=== PATIENT | male | born 1940 | race Caucasian/White ===

== ENCOUNTER 2018-10-14 06:53 | Day surgery (SDC) | payer MEDICARE ==
[~2018-10-14 06:53] MED LIST: Acetaminophen TAB* 325 MG PO PRN; Buffered Lidocaine 1% SYRIN* 1 ML/SYRINGE INTRADERM ONE
[2018-10-14] MEDS ORDERED: Midazolam* 1 MG/ML 2 ML VIAL (2 MG) ONE (08:19)
[2018-10-14 09:17] VITALS: BP 120/78
[2018-10-14] MEDS ORDERED: Lidocaine 1%* 5 ML VIAL ONE (09:36)
[2018-10-14] MEDS ORDERED: Phenylephrine OPHTH SOL 2.5%* 2 ML ONE (09:36)
[2018-10-14] MEDS ORDERED: acetaZOLAMIDE TAB* 250 MG ONE (09:36)
[2018-10-14] MEDS ORDERED: Neomycin/Polymy/Dex OPTH.SUSP* MAXITROL 0.1% 5 ML ONE (09:36)
[2018-10-14] MEDS ORDERED: Proparacaine 0.5% OPHTH.SOL* 15 ML BTL ONE (09:36)
[2018-10-14] MEDS ORDERED: Povidone Iodine 5% OPTH* 30 ML BTL ONE (09:36)
[2018-10-14] MEDS ORDERED: Ketorolac 0.5% OPHTH (NF) 0.5 % 5 ML BTL ONE (09:36)
[2018-10-14] MEDS ORDERED: Lidocaine 2% EPI 1:200000 MPF*10-20 ML VIAL ONE (09:36)
[2018-10-14] MEDS ORDERED: Cyclopentolate 1% OPTH.SOL* 2 ML BTL ONE (09:36)
--- NOTE | 2018-10-14 10:33 | OP ---
DATE OF OPERATION: 10/14/2018. DATE OF : 1940. SURGEON: Chris Connolly M.D. PREOPERATIVE DIAGNOSIS: Cataract left eye. POSTOPERATIVE DIAGNOSIS: Cataract left eye. OPERATIVE PROCEDURE: Extracapsular cataract extraction with intraocular lens implant left eye. PROCEDURE: The patient was brought to the operating room after being given 1/2% Alcaine with epineph rine drops in the preoperative area. The eye was prepped and draped in the usual sterile fashion. S terile drape and eyelid speculum were placed. Again, topical 1/2% Alcaine with epinephrine was given . A paracentesis incision was made at the 3 o'clock position with the No.75 blade. Clear cornea inc ision 2.2 x 2.2-mm was created at the 6 o'clock position starting at the anterior limbus using the 2. 2-mm keratome. The anterior chamber was irrigated with 0.4 mL of 1% non-preservative intracameral li docaine and filled with DisCoVisc. A capsulorrhexis was completed using the cystotome and the Utrata forceps. Hydrodissection was performed with balanced salt solution. The lens nucleus was removed wi th the Phacoemulsification handpiece without incident. Cortex was removed with the irrigation-aspira tion handpiece. The capsular bag was re-inflated using DisCoVisc and an [id number] 23.5 implant was inse rted with the shooter, oriented to the 177 degree meridian. All measurements were confirmed with ORA . The irrigation-aspiration handpiece was used to remove all residual DisCoVisc. The eye was refill ed with balanced salt solution and the wound checked and found to be watertight. Topical Maxitrol dr ops were given. [id number]/[facility] #: [id number]
== END 2018-10-14 09:27 | disposition home or self-care (01) ==
LOC: OREAST 06:53
PROVIDERS: ATTEND Specialist
DX: H25.12 Age-related nuclear cataract, left eye (principal); Z72.0 Tobacco use; I10 Essential (primary) hypertension
CPT/HCPCS: A9270-GY; J2250; V2787

== ENCOUNTER → 2018-10-21 07:03 | Day surgery (SDC) | payer MEDICARE ==
[~2018-10-21 07:03] MED LIST changes: +Cyclopentolate 1% OPTH.SOL* 2 ML BTL ONE; +Ketorolac 0.5% OPHTH (NF) 0.5 % 5 ML BTL ONE; +Lidocaine 1%* 5 ML VIAL ONE; +Lidocaine 2% EPI 1:200000 MPF*10-20 ML VIAL ONE; +Midazolam* 1 MG/ML 2 ML VIAL (2 MG) ONE; +Neomycin/Polymy/Dex OPTH.SUSP* MAXITROL 0.1% 5 ML ONE; +Phenylephrine OPHTH SOL 2.5%* 2 ML ONE; +Povidone Iodine 5% OPTH* 30 ML BTL ONE; +Proparacaine 0.5% OPHTH.SOL* 15 ML BTL ONE; +acetaZOLAMIDE TAB* 250 MG ONE
[2018-10-21 10:29] VITALS: BP 101/64
--- NOTE | 2018-10-21 12:39 | OP ---
OPERATIVE NOTE: DATE OF OPERATION: 10/21/18 DATE OF : [birth year] SURGEON: Chris Connolly MD PREOPERATIVE DIAGNOSIS: Cataract, right eye. POSTOPERATIVE DIAGNOSIS: Cataract, right eye. OPERATIVE PROCEDURE: Extracapsular cataract extraction with intraocular lens implant, right eye. PROCEDURE: The patient was brought to the operating room after being given 1/2% Alcaine with epineph rine drops in the preoperative area. The eye was prepped and draped in the usual sterile fashion. S terile drape and eyelid speculum were placed. Again, topical 1/2% Alcaine with epinephrine was given . A paracentesis incision was made at the 9 o'clock position with the No.75 blade. Clear cornea inc ision 2.2 x 2.2-mm was created at the 12 o'clock position starting at the anterior limbus using the 2 .2-mm keratome. The anterior chamber was irrigated with 0.4 mL of 1% non-preservative intracameral l idocaine and filled with DisCoVisc. A capsulorrhexis was completed using the cystotome and the Utrat a forceps. Hydrodissection was performed with balanced salt solution. The lens nucleus was removed w ith the Phacoemulsification handpiece without incident. Cortex was removed with the irrigation-aspir ation handpiece. The capsular bag was re-inflated using DisCoVisc and an [id number] 24 implant was inser blake with the shooter, oriented to the 156-degree meridian. The irrigation-aspiration handpiece was u sed to remove all residual DisCoVisc. The eye was refilled with balanced salt solution and the wound checked and found to be watertight. Topical Maxitrol drops were given. All measurements confirmed with ORA. [id number]/[facility] #: [id number]
== END | disposition home or self-care (01) ==
LOC: OREAST 07:03
PROVIDERS: ATTEND Specialist
DX: H25.11 Age-related nuclear cataract, right eye (principal); I10 Essential (primary) hypertension; F17.210 Nicotine dependence, cigarettes, uncomplicated
CPT/HCPCS: A9270-GY; J2250; V2787

== ENCOUNTER 2018-12-21 15:13 | Inpatient (IN) | payer MEDICARE ==
[2018-12-21 17:28] LABS: Hematocrit 42 % (42-52); Hemoglobin 14.5 g/dL (14.0-18.0); Mean Corpuscular HGB Conc 35 g/dL (31-36); Mean Corpuscular Hemoglobin 34 pg (27-31); Mean Corpuscular Volume 98 fL (80-94); Mean Platelet Volume 7.3 fL (7.4-10.4); Platelet Count 635 10^3/uL (150-450); Red Blood Count 4.26 10^6 /uL (4.18-5.48); Red Cell Distribution Width 12 % (10-15)
[2018-12-21] MEDS ORDERED: NS 0.9% 1000 ML** 1,000 ML IV ONE ×2 (17:42→17:49)
[2018-12-21 17:48] LABS: ALT 21 U/L (7-52); AST 24 U/L (13-39); Albumin 3.5 g/dL (3.2-5.2); Albumin/Globulin Ratio 0.9 (1-3); Alkaline Phosphatase 117 U/L (34-104); BUN/Creatinine Ratio 26.3 (8-20); Blood Urea Nitrogen 42 mg/dL (6-24); C Reactive Protein 342.04 mg/L (<8.01); CO2 Carbon Dioxide 29 mmol/L (22-32); Chloride 85 mmol/L (101-111); EGFR African American 51.1 (>60); EGFR Non-African American 42.2 (>60); Globulin 3.8 g/dL (2-4); Glucose 110 mg/dL (70-100); Sodium 124 mmol/L (135-145); Total Protein 7.3 g/dL (6.4-8.9)
[2018-12-21 17:49] LABS: Anion Gap 10 mmol/L (2-11); Potassium 5.1 mmol/L (3.5-5.0); Troponin I 0.05 ng/mL (<0.04)
[2018-12-21] MEDS ORDERED: Levofloxacin 750 MG IVPREMIX(* 750 MG/150 ML BAG IVPB ONE (17:49)
[2018-12-21 18:08] LABS: ABS Lymphocytes 0.6 10^3/ul (1.0-4.8); ABS Monocytes 1.4 10^3/ul (0-0.8); Creatine Kinase 66 U/L (10-223); Lymphocyte % 1.7 %
--- NOTE | 2018-12-21 18:21 | ED ---
Complex/Multi-Sys Presentation - HPI Summary HPI Summary: This patient is a 78 year old M presenting to [facility] [place] accompanied by a female wheel inspector with a chief complaint of feeling cold, shaking, and fatigue since 3 days ago. Pt states he had a heat stroke 3 days ago and has not been the same since then. Pt reports decreased PO intake, cough, and congestion. He states that since the heat stroke, his arthritis, hip pain, and sciatica worsened. He notes having a "chest infection" and says that liquid building up in his chest causes him to cough. The pt rates the pain 7/10 in severity. Symptoms aggravated by nothing. Symptoms alleviated by nothing. Pt also states he does not have air conditioning in his apartment. - History Of Current Complaint Chief Complaint: EDShortnessOfBreath Time Seen by Provider: 12/21/18 17:23 Hx Obtained From: Patient Onset/Duration: Sudden Onset, Lasting Days - 3, Still Present Timing: Constant, Days - 3 Severity Currently: Severe Severity Initially: Severe Aggravating Factor(s): nothing Alleviating Factor(s): nothing Associated Signs And Symptoms: Positive: Cough, Decreased Oral Intake, Other - positive - cold, shaking, fatigue, congestion, arthritis, hip pain, and sciatica worsened, "chest infection" - Allergies/Home Medications Allergies/Adverse Reactions: Allergies Allergy/AdvReac Type Severity Reaction Status Date / Time No Known Allergies Allergy Verified 10/21/18 07:20 Home Medications: Home Medications Ascorbic Acid TAB* [Vitamin C TAB*] 500 mg PO DAILY 12/21/18 [History Confirmed 12/21/18] Aspirin EC TAB* [Ecotrin EC Low Dose 81 MG*] 81 mg PO DAILY 12/21/18 [History Confirmed 12/21/18] Multivitamins/Minerals TAB* [Theragran/minerals TAB*] 1 tab PO DAILY 12/21/18 [ History Confirmed 12/21/18] PMH/Surg Hx/FS Hx/Imm Hx Previously Healthy: No Cardiovascular History: Reports: Hx Hypertension - controlled with medication Denies: Other Cardiovascular Problems/Disorders Respiratory History: Denies: Other Respiratory Problems/Disorders GI History: Denies: Other GI Disorders History: Denies: Other Problems/Disorders Musculoskeletal History: Reports: Hx Arthritis - lower back, bilateral hips- left hip greater than right, Other Musculoskeletal History - Bilateral sciatic and groin pain,left greater than right,Hx inguinal hernia Sensory History: Reports: Hx Cataracts - Bilateral, Hx Contacts or Glasses - sometimes for reading Denies: Hx Hearing Aid Opthamlomology History: Reports: Hx Cataracts - Bilateral, Hx Contacts or Glasses - sometimes for reading Neurological History: Denies: Other Neuro Impairments/Disorders - Surgical History Surgical History: Yes Surgery Procedure, Year, and Place: Teeth Extraction, office. 1977 Facial bone repair below left eye, office. Left Inguinal Hernia Repair 2012 [facility] – [place]. Colonoscopy x2 Hx Anesthesia Reactions: No Infectious Disease History: No Infectious Disease History: Denies: Traveled Outside the [place] in Last 30 Days - Family History Known Family History: Positive: Cardiac Disease - mother of [place], brother of stroke - Social History Alcohol Use: Daily Alcohol Amount: BEER- 4-5 beers a day Hx Substance Use: No Substance Use Type: Reports: None Hx Tobacco Use: Yes Smoking Status (MU): Heavy Every Day Tobacco Smoker Type: Cigarettes Amount Used/How Often: 1 PPD for 50+ years Have You Smoked in the Last Year: Yes Review of Systems Constitutional: Other - positive - decreased PO intake, shaking Positive: Chills - feels cold, Fatigue ENT: Other - positive - congestion Respiratory: Other - positive - "chest infection" and says that liquid building up in his chest causes him to cough. Positive: Cough Musculoskeletal: Other - positive - since the heat stroke, his arthritis, hip pain, and sciatica worsened All Other Systems Reviewed And Are Negative: Yes Physical Exam - Summary Physical Exam Summary: Appearance: The patient is well-nourished in no acute distress and in no acute pain. Skin: The skin is warm and dry and skin color reflects adequate perfusion. HEENT: The head is normocephalic and atraumatic. The pupils are equal and reactive. The conjunctivae are clear and without drainage. Nares are patent and without drainage. Mouth reveals moist mucous membranes and the throat is without erythema and exudate. The external ears are intact. The ear canals are patent and without drainage. The tympanic membranes are intact. Neck: The neck is supple with full range of motion and non-tender. There are no carotid bruits. There is no neck vein distension. Respiratory: Chest is non-tender. Lungs are clear to auscultation and breath sounds are symmetrical and equal. Cardiovascular: Heart is tachycardic. There is no murmur or rub auscultated. There is no peripheral edema and pulses are symmetrical and equal. Abdomen: The abdomen is soft and non-tender. There are normal bowel sounds heard in all four quadrants and there is no organomegaly palpated. Musculoskeletal: There is no back tenderness noted. Extremities are non-tender with full range of motion. There is good capillary refill. There is no peripheral edema or calf tenderness elicited. Neurological: Patient is alert and oriented to person, place and time. The patient has symmetrical motor strength in all four extremities. Cranial nerves are grossly intact. Deep tendon reflexes are symmetrical and equal in all four extremities. Psychiatric: The patient has an appropriate affect and does not exhibit any anxiety or depression. Triage Information Reviewed: Yes Vital Signs On Initial Exam: Initial Vitals Temp Pulse Resp BP Pulse Ox 98.7 F 106 18 144/93 94 12/21/18 15:19 12/21/18 15:19 12/21/18 15:19 12/21/18 15:19 12/21/18 15:19 Vital Signs Reviewed: Yes Diagnostics - Vital Signs Vital Signs Temp Pulse Resp BP Pulse Ox 12/21/18 17:29 15 137/92 12/21/18 17:05 97.9 F 98 20 107/78 92 12/21/18 15:19 98.7 F 106 18 144/93 94 - Laboratory Lab Results: Lab Results 12/21/18 12/21/18 12/21/18 Range/Units 17:09 17:09 17:09 WBC 34.0 H (3.5-10.8) 10^3/uL RBC 4.26 (4.18-5.48) 10^6 /uL Hgb 14.5 (14.0-18.0) g/dL Hct 42 (42-52) % MCV 98 H (80-94) fL MCH 34 H (27-31) pg MCHC 35 (31-36) g/dL RDW 12 (10-15) % Plt Count 635 H (150-450) 10^3/uL MPV 7.3 L (7.4-10.4) fL Neut % (Auto) 94.1 % Lymph % (Auto) 1.7 % Cache % (Auto) 4.2 % Eos % (Auto) 0.0 % Baso % (Auto) 0.0 % Absolute Neuts (auto) 32.0 H (1.5-7.7) 10^3/ul Absolute Lymphs (auto) 0.6 L (1.0-4.8) 10^3/ul Absolute Monos (auto) 1.4 H (0-0.8) 10^3/ul Absolute Eos (auto) 0.0 (0-0.6) 10^3/ul Absolute Basos (auto) 0.0 (0-0.2) 10^3/ul Absolute Nucleated RBC 0.0 10^3/ul Nucleated RBC % 0.0 Sodium 124 L (135-145) mmol/L Potassium 5.1 H (3.5-5.0) mmol/L Chloride 85 L (101-111) mmol/L Carbon Dioxide 29 (22-32) mmol/L Anion Gap 10 (2-11) mmol/L BUN 42 H (6-24) mg/dL Creatinine 1.60 H (0.67-1.17) mg/dL Est GFR ( Amer) 51.1 (>60) Est GFR (Non-Af Amer) 42.2 (>60) BUN/Creatinine Ratio 26.3 H (8-20) Glucose 110 H (70-100) mg/dL Lactic Acid 2.2 H* (0.5-2.0) mmol/L Calcium 10.0 (8.6-10.3) mg/dL Total Bilirubin 0.40 (0.2-1.0) mg/dL AST 24 (13-39) U/L ALT 21 (7-52) U/L Alkaline Phosphatase 117 H (34-104) U/L Total Creatine Kinase 66 (10-223) U/L Troponin I 0.05 H* (<0.04) ng/mL C-Reactive Protein 342.04 H (<8.01) mg/L B-Natriuretic Peptide (<=100) pg/mL Total Protein 7.3 (6.4-8.9) g/dL Albumin 3.5 (3.2-5.2) g/dL Globulin 3.8 (2-4) g/dL Albumin/Globulin Ratio 0.9 L (1-3) 12/21/18 Range/Units 17:09 WBC (3.5-10.8) 10^3/uL RBC (4.18-5.48) 10^6 /uL Hgb (14.0-18.0) g/dL Hct (42-52) % MCV (80-94) fL MCH (27-31) pg MCHC (31-36) g/dL RDW (10-15) % Plt Count (150-450) 10^3/uL MPV (7.4-10.4) fL Neut % (Auto) % Lymph % (Auto) % Cache % (Auto) % Eos % (Auto) % Baso % (Auto) % Absolute Neuts (auto) (1.5-7.7) 10^3/ul Absolute Lymphs (auto) (1.0-4.8) 10^3/ul Absolute Monos (auto) (0-0.8) 10^3/ul Absolute Eos (auto) (0-0.6) 10^3/ul Absolute Basos (auto) (0-0.2) 10^3/ul Absolute Nucleated RBC 10^3/ul Nucleated RBC % Sodium (135-145) mmol/L Potassium (3.5-5.0) mmol/L Chloride (101-111) mmol/L Carbon Dioxide (22-32) mmol/L Anion Gap (2-11) mmol/L BUN (6-24) mg/dL Creatinine (0.67-1.17) mg/dL Est GFR ( Amer) (>60) Est GFR (Non-Af Amer) (>60) BUN/Creatinine Ratio (8-20) Glucose (70-100) mg/dL Lactic Acid (0.5-2.0) mmol/L Calcium (8.6-10.3) mg/dL Total Bilirubin (0.2-1.0) mg/dL AST (13-39) U/L ALT (7-52) U/L Alkaline Phosphatase (34-104) U/L Total Creatine Kinase (10-223) U/L Troponin I (<0.04) ng/mL C-Reactive Protein (<8.01) mg/L B-Natriuretic Peptide 214 H (<=100) pg/mL Total Protein (6.4-8.9) g/dL Albumin (3.2-5.2) g/dL Globulin (2-4) g/dL Albumin/Globulin Ratio (1-3) Result Diagrams: 12/21/18:10 12/21/18 21:04 Lab Statement: Any lab studies that have been ordered have been reviewed, and results considered in the medical decision making process. 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 He blamed it on the heat. His apartment is a basement apartment is not that hot but is damp. He was nontoxic in appearance but does look somewhat cachectic. He was mildly tachycardic but afebrile. He had a wet cough in the room. Labs were obtained and revealed a marked leukocytosis of 31,000. He was given IV fluids and Levaquin since he then met septic criteria. Chest x-ray showed a possible infiltrate and also possibly a mass. He had mild renal insufficiency and I was hesitant to do a follow-up CT scan until he has been rehydrated. I spoke with the hospitalist about admission - Diagnoses Provider Diagnoses: Pneumonia, Sepsis - Critical Care Time Critical Care Time: 30-74 min Discharge - Sign-Out/Discharge Documenting (check all that apply): Patient Departure - Discharge Plan Condition: Stable Disposition: ADMITTED TO [facility] Referrals: Sara Buckley PERFORMANCE TEST ARCHITECT [Primary Care Provider] - - Billing Disposition and Condition Condition: STABLE Disposition: Admitted to [facility] - Attestation Statements Document Initiated by Scribe: Yes Documenting Scribe: Sachin Head Provider For Whom Isaac is Documenting (Include Credential): Dr. Matt Campbell MD Scribe Attestation: Sachin Hansen, scribed for Dr. Matt Campbell MD on 12/21/18 at 2141. Scribe Documentation Reviewed: Yes Provider Attestation: The documentation as recorded by the Sachin reyes accurately reflects the service I personally performed and the decisions made by me, Dr. Matt Campbell MD Status of Scribe Document: Viewed
--- NOTE | 2018-12-21 20:42 | HP ---
History of Present Illness - History of Present Illness Reason for Visit: Cough History of Present Illness: Mr. Ceballos is a 78 year old male with PMHx of Hypertension, arthritis, heavy alcohol use and smoker here due to not feeling well. 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 Although he's cut down on the beer. He also says his sciatica started bothering him and he's been having cough with yellow sputum. And worsening shortness of breath so finally decided to come to ER for evaluation. He has been compliant with his diuretics during the last few days as well. Diffuse muscular pain but more so on the left chest. Episode of nausea and decreased appetite over the weekend but not any more. Decreased urination the last few days. Past Medical History Hypertension Arthritis - lower back, bilateral hips-left hip greater than right. Bilateral sciatic and groin pain,left greater than right. Surgical History Teeth Extraction Facial bone repair below left eye. Left Inguinal Hernia Repair [address] [facility] [place]. Colonoscopy x2 Bilateral Cataracts Family History Cardiac Disease - mother of [place], brother of stroke Social History Smoking heavy use [employer] at [employer] for over 50 years last use few days ago. Alcohol drinks 4-5 beer per day cut down to 1-2 last few days due to the heat stroke. Drug use tried cocaine in past. Lives alone but his niece (Amelie Bob [phone]) lives 10 minutes away. She is his HCP and he's currently full code. Allergies Allergy/AdvReac Type Severity Reaction Status Date / Time No Known Allergies Allergy Verified 10/21/18 07:20 Home Medications Medication Instructions Recorded Confirmed Type Gluc Maldonado/MSM/Magnesium/Vit C 1 cap PO QAM 10/12/18 12/21/18 History [Glucosamine Complex-MSM Cap] Lisinopril/HCTZ 21/05.5(NF) 1 tab PO QAM 10/12/18 12/21/18 History [Zestoretic 21/05.5(NF)] Ascorbic Acid TAB* [Vitamin C 500 mg PO DAILY 12/21/18 12/21/18 History TAB*] Aspirin EC TAB* [Ecotrin EC Low 81 mg PO DAILY 12/21/18 12/21/18 History Dose 81 MG*] Multivitamins/Minerals TAB* 1 tab PO DAILY 12/21/18 12/21/18 History [Theragran/minerals TAB*] Review of Systems - Measurements Intake and Output: Intake and Output Last 24 Hours 12/19/18 12/20/18 12/21/18 12/22/18 06:59 06:59 06:59 06:59 Intake Total 1000 Balance 1000 Weight 115 lb Intake: IV Fluids 1000 - Review of Systems Constitutional Symptoms: Positive: Weakness, Fatigue Negative: Fever Pulmonary: Positive: Cough, Sputum, Shortness of Breath Cardiology: Positive: Shortness of Breath Objective Vital Signs - 8 hr 12/21/18 12/21/18 12/21/18 15:19 17:05 17:29 Temperature 98.7 F 97.9 F Pulse Rate 106 98 Respiratory 18 20 15 Rate Blood Pressure 144/93 107/78 137/92 (mmHg) O2 Sat by Pulse 94 92 Oximetry 12/21/18 12/21/18 12/21/18 17:58 18:01 18:45 Temperature Pulse Rate 90 92 102 Respiratory 18 18 16 Rate Blood Pressure 131/86 122/88 (mmHg) O2 Sat by Pulse 96 96 97 Oximetry 12/21/18 12/21/18 12/21/18 18:59 19:01 19:28 Temperature Pulse Rate 98 98 98 Respiratory 21 31 21 Rate Blood Pressure 124/81 119/82 (mmHg) O2 Sat by Pulse 96 97 97 Oximetry Oxygen Devices in Use Now: None Appearance: Very cachetic male who's otherwise in high spiritis and funny. Eyes: No Scleral Icterus, PERRLA Ears/Nose/Mouth/Throat: NL Teeth, Lips, Gums, Clear Oropharnyx, Mucous Membranes Moist Neck: NL Appearance and Movements; NL JVP, Trachea Midline Respiratory: - - Diffuse wheezing and some intermittant ronchi. Cardiovascular: NL Sounds; No Murmurs; No JVD, No Edema, - - Patient is tachycardic Abdominal: NL Sounds; No Tenderness; No Distention Extremities: No Edema Skin: No Rash or Ulcers Neurological: Alert and Oriented x 3, NL Sensation, NL Gait, NL Muscle Strength and Tone Nutrition: Taking PO's Result Diagrams: 12/21/18 21:10 12/21/18 21:04 Additional Lab and Data: Lab Results 12/21/18 12/21/18 12/21/18 Range/Units 17:09 17:09 17:09 WBC 34.0 H (3.5-10.8) 10^3/uL RBC 4.26 (4.18-5.48) 10^6 /uL Hgb 14.5 (14.0-18.0) g/dL Hct 42 (42-52) % MCV 98 H (80-94) fL MCH 34 H (27-31) pg MCHC 35 (31-36) g/dL RDW 12 (10-15) % Plt Count 635 H (150-450) 10^3/uL MPV 7.3 L (7.4-10.4) fL Neut % (Auto) 94.1 % Lymph % (Auto) 1.7 % Webster % (Auto) 4.2 % Eos % (Auto) 0.0 % Baso % (Auto) 0.0 % Absolute Neuts (auto) 32.0 H (1.5-7.7) 10^3/ul Absolute Lymphs (auto) 0.6 L (1.0-4.8) 10^3/ul Absolute Monos (auto) 1.4 H (0-0.8) 10^3/ul Absolute Eos (auto) 0.0 (0-0.6) 10^3/ul Absolute Basos (auto) 0.0 (0-0.2) 10^3/ul Absolute Nucleated RBC 0.0 10^3/ul Nucleated RBC % 0.0 Sodium 124 L (135-145) mmol/L Potassium 5.1 H (3.5-5.0) mmol/L Chloride 85 L (101-111) mmol/L Carbon Dioxide 29 (22-32) mmol/L Anion Gap 10 (2-11) mmol/L BUN 42 H (6-24) mg/dL Creatinine 1.60 H (0.67-1.17) mg/dL Est GFR ( Amer) 51.1 (>60) Est GFR (Non-Af Amer) 42.2 (>60) BUN/Creatinine Ratio 26.3 H (8-20) Glucose 110 H (70-100) mg/dL Lactic Acid 2.2 H* (0.5-2.0) mmol/L Calcium 10.0 (8.6-10.3) mg/dL Total Bilirubin 0.40 (0.2-1.0) mg/dL AST 24 (13-39) U/L ALT 21 (7-52) U/L Alkaline Phosphatase 117 H (34-104) U/L Total Creatine Kinase 66 (10-223) U/L Troponin I 0.05 H* (<0.04) ng/mL C-Reactive Protein 342.04 H (<8.01) mg/L B-Natriuretic Peptide (<=100) pg/mL Total Protein 7.3 (6.4-8.9) g/dL Albumin 3.5 (3.2-5.2) g/dL Globulin 3.8 (2-4) g/dL Albumin/Globulin Ratio 0.9 L (1-3) 12/21/18 Range/Units 17:09 WBC (3.5-10.8) 10^3/uL RBC (4.18-5.48) 10^6 /uL Hgb (14.0-18.0) g/dL Hct (42-52) % MCV (80-94) fL MCH (27-31) pg MCHC (31-36) g/dL RDW (10-15) % Plt Count (150-450) 10^3/uL MPV (7.4-10.4) fL Neut % (Auto) % Lymph % (Auto) % Webster % (Auto) % Eos % (Auto) % Baso % (Auto) % Absolute Neuts (auto) (1.5-7.7) 10^3/ul Absolute Lymphs (auto) (1.0-4.8) 10^3/ul Absolute Monos (auto) (0-0.8) 10^3/ul Absolute Eos (auto) (0-0.6) 10^3/ul Absolute Basos (auto) (0-0.2) 10^3/ul Absolute Nucleated RBC 10^3/ul Nucleated RBC % Sodium (135-145) mmol/L Potassium (3.5-5.0) mmol/L Chloride (101-111) mmol/L Carbon Dioxide (22-32) mmol/L Anion Gap (2-11) mmol/L BUN (6-24) mg/dL Creatinine (0.67-1.17) mg/dL Est GFR ( Amer) (>60) Est GFR (Non-Af Amer) (>60) BUN/Creatinine Ratio (8-20) Glucose (70-100) mg/dL Lactic Acid (0.5-2.0) mmol/L Calcium (8.6-10.3) mg/dL Total Bilirubin (0.2-1.0) mg/dL AST (13-39) U/L ALT (7-52) U/L Alkaline Phosphatase (34-104) U/L Total Creatine Kinase (10-223) U/L Troponin I (<0.04) ng/mL C-Reactive Protein (<8.01) mg/L B-Natriuretic Peptide 214 H (<=100) pg/mL Total Protein (6.4-8.9) g/dL Albumin (3.2-5.2) g/dL Globulin (2-4) g/dL Albumin/Globulin Ratio (1-3) Diagnostic Imaging: Portable CXR Shows a 2.5-3.0cm round mass on hte right chest and possible pneumonia and cardiomegaly. Hyperinflated lungs suggestive of COPD EKG Data: EKG Sinus tachycardia at 107bpm. Assess/Plan/Problems-Billing Assessment: 78yoM with HTN on diuretics here due to generalized mailaise from heat stroke also noted to have a lung lesion and possible PNA. Sepsis secondary to PNA Lung lesion WILMER Lactic Acidosis Minimally elevated troponin likely from sepsis Hx of HTN Hyponatremis due to decreased PO intake Hx of alcohol use Plan Start on levaquin. Urine legionella and pneumonia antigens. Blood and sputum cultures ordered. IV hydration to improve creatinine Once creatinine normal consider CTA to evaluate the lung mass further. Notified patient regarding CXR finding. Will add steroids, nebs to treat. Start WAM protocol. Serial troponins and ECHO to evaluate elevated troponins. Hold home diuretics due to WILMER/Hyponatremia. Serum osmolality and urine lytes to evaluate the hyponatremia goal to correct less than 0.5meq/hr. DVT PPx with SCDs Goals of care discussed full cose.
[2018-12-21 21:18] LABS: Hematocrit 38 % (42-52); Hemoglobin 13.5 g/dL (14.0-18.0); Mean Corpuscular HGB Conc 36 g/dL (31-36); Mean Corpuscular Hemoglobin 35 pg (27-31); Mean Corpuscular Volume 98 fL (80-94); Mean Platelet Volume 7.3 fL (7.4-10.4); Platelet Count 550 10^3/uL (150-450); Red Blood Count 3.84 10^6 /uL (4.18-5.48); Red Cell Distribution Width 13 % (10-15); White Blood Count 31.3 10^3/uL (3.5-10.8)
[2018-12-21 21:20] LABS: ABS Lymphocytes 0.6 10^3/ul (1.0-4.8); ABS Monocytes 1.1 10^3/ul (0-0.8); ABS Neutrophils 29.7 10^3/ul (1.5-7.7); Lymphocyte % 1.8 %
[2018-12-21 21:34] LABS: Activated Partial Thrombo Time 32.3 seconds (26.0-38.0); INR 1.2 (0.82-1.09)
[2018-12-21 21:35] LABS: BUN/Creatinine Ratio 28.2 (8-20); Calcium 8.6 mg/dL (8.6-10.3); EGFR African American 68.6 (>60); EGFR Non-African American 56.7 (>60)
[2018-12-21 21:37] LABS: Troponin I 0.03 ng/mL (<0.04)
[2018-12-21 21:45] LABS: Urine Potassium Concentration 86.6 mmol/L
[2018-12-21 21:48] LABS: Urine Appearance Cloudy; Urine Bilirubin Negative (Negative); Urine Blood Negative (Negative); Urine Color Yellow; Urine Glucose Negative (Negative); Urine Ketones Trace (Negative); Urine Nitrite Negative (Negative); Urine Protein Negative (Negative); Urine Specific Gravity 1.016 (1.010-1.030); Urine Urobilinogen Negative (Negative)
[2018-12-21] MEDS ORDERED: Acetaminophen TAB* 325 MG PO PRN (21:56)
[2018-12-21] MEDS ORDERED: LORazepam TAB(*) 1 MG PO SCH (22:00)
[2018-12-21] MEDS ORDERED: Albuterol/Ipratropium NEB.SOL* Albuterol 2.5 MG/Ipratropium 0.5 MG 3 ML INH PRN (22:05)
[2018-12-21] MEDS ORDERED: Thiamine IV* 100 MG/ML 2 ML VIAL IM ONE (23:30)
[2018-12-22] MEDS: NS 0.9% 1000 ML** 1,000 ML IV SCH ×2 (00:21→09:46)
[2018-12-22] MEDS: Heparin VIAL(*) 5000 UNITS/ML VIAL (FIVE THOUSAND) SUBCUT SCH ×4 (00:23→22:38)
[2018-12-22] MEDS: methylPREDNISolone SOD 40 MG* 1 ML VIAL IV SCH ×3 (00:35→22:39)
--- NOTE | 2018-12-22 07:03 | PN ---
Progress Note - Progress Note Date of Service: 12/21/18 Note: Dr. Hernandez called to wa, Kacie Wise PA-C at 6:50a to make aware of findings of Xray. It appears per patient note from Dr. Campbell and Dr. Leone both are aware of cardiomegaly and L pleural effusion as well as nodule. They will CT after patient is rehydrated for further evaluation. [place] [facility] [place]
[2018-12-22 07:15] LABS: Hematocrit 35 % (42-52); Hemoglobin 12.3 g/dL (14.0-18.0); Mean Corpuscular HGB Conc 35 g/dL (31-36); Mean Corpuscular Hemoglobin 34 pg (27-31); Mean Corpuscular Volume 98 fL (80-94); Mean Platelet Volume 7.3 fL (7.4-10.4); Platelet Count 492 10^3/uL (150-450); Red Blood Count 3.57 10^6 /uL (4.18-5.48); Red Cell Distribution Width 12 % (10-15); White Blood Count 26.9 10^3/uL (3.5-10.8)
[2018-12-22 07:22] LABS: ABS Basophils 0.1 10^3/ul (0-0.2); ABS Lymphocytes 0.3 10^3/ul (1.0-4.8); ABS Monocytes 0.3 10^3/ul (0-0.8); ABS Neutrophils 26.2 10^3/ul (1.5-7.7); Lymphocyte % 1.1 %
[2018-12-22 08:07] LABS: BUN/Creatinine Ratio 29.7 (8-20); Calcium 8.1 mg/dL (8.6-10.3); EGFR African American 86.9 (>60); EGFR Non-African American 71.8 (>60); Potassium 3.9 mmol/L (3.5-5.0)
[2018-12-22] MEDS ORDERED: Iohexol 300* (CONTRAST) 10 ML SDV IV ONE (08:58)
[2018-12-22] MEDS: Folic Acid TAB* 1 MG PO SCH (09:03)
[2018-12-22] MEDS: Multivitamins/Minerals TAB PO SCH (09:03)
[2018-12-22] MEDS: Thiamine TAB* 100 MG TAB PO SCH (09:03)
--- NOTE | 2018-12-22 11:58 | ECHO ---
*[facility]* [place] [address] Fax #: [phone] Transthoracic Echocardiogram Patient: Matt Ceballos : 1940 Study Date: 12/22/2018 Age: 78 Gender: M HR: 98 bpm Height: 68 in /172.7 cm BSA: 1.62 m^2 Weight: 114.8 lb /52.2 kg BMI: 17.5 kg/m^2 *[employer]: * Tatiana Pantoja RDCS RN *Referring Physician: * Tian Leone *Reading Physician: * Marco Antonio Solano MD Indications: Chest Pain, unspecified. History: Risk factors: Current tobacco use. ETOH use. Hypertension. Conclusions Summary: - Left ventricle: The cavity size is mildly reduced. Wall thickness is mildly to moderately increased. Systolic function is normal. The estimated ejection fraction is 55-60%. Wall motion is normal; there are no regional wall motion abnormalities. - Right ventricle: Systolic function is normal. - Mitral valve: There is mild to moderate regurgitation. - Aortic valve: There is no evidence of stenosis. There is no significant regurgitation. - Tricuspid valve: There is mild-moderate regurgitation. - Pericardium, extracardiac: There is a LARGE left pleural effusion. - Pulmonary arteries: Systolic pressure is within the normal range, estimated to be 26 mm Hg. Pulmonary artery pressure may be underestimated - Study data: No prior study is available for comparison. Study data: Transthoracic echocardiogram. Procedure: Transthoracic echocardiography was performed. The study was technically limited due to non-standard acoustic windows and smoking history. Complete 2D, spectral Doppler, and color flow Doppler. Location: Bedside. Patient status: Inpatient. Patient room number: 448-01. No prior study is available for comparison. Findings Left ventricle: The cavity size is mildly reduced. Wall thickness is mildly to moderately increased. Systolic function is normal. The estimated ejection fraction is 55-60%. Wall motion is normal; there are no regional wall motion abnormalities. There is no consistent Doppler evidence of clinically significant diastolic dysfunction. Right ventricle: The cavity size is normal. Systolic function is normal. Left atrium: The atrium is mildly dilated. Right atrium: The atrium is normal in size. Mitral valve: The leaflets are mildly thickened. There is no evidence of stenosis. There is mild to moderate regurgitation. Aortic valve: Not well visualized. The leaflets are mildly thickened. There is no evidence of stenosis. There is no significant regurgitation. Tricuspid valve: The valve is structurally normal. There is no evidence of stenosis. There is mild-moderate regurgitation. Pulmonic valve: Not visualized. There is no significant regurgitation. Aorta: Aortic root: The aortic root is poorly visualized. Ascending aorta: The ascending aorta is not visualized. Aortic arch: The aortic arch is not dilated. Pericardium: There is no pericardial effusion. There is a large left pleural effusion. Pulmonary arteries: Not well visualized. Systolic pressure is within the normal range, estimated to be 26 mm Hg. Pulmonary artery pressure may be underestimated Systemic veins: Inferior vena cava: The vessel is normal in size. There is (>= 50%) respiratory change in the IVC dimension. Measurements Left ventricle Value Ref Aortic valve Value Ref SIOMARA, LAX (L) 3.2 cm 4.2 - 5.8 Mikhail diam, ED 1.8 cm ----- ESD, LAX (L) 2.3 cm 2.5 - 4.0 Peak v, S 1.3 m/sec ----- FS, LAX 28 % 25 - 43 VTI, S 18.7 cm ----- PW, ED (H) 1.3 cm 0.6 - 1.0 Mean grad, S 3.0 mm Hg ----- IVS/PW, ED 1.02 Peak grad, S 6.0 mm Hg ----- E', lat mikhail, TDI (L) 9.5 cm/sec >=10.0 LVOT/AV, VTI ratio 0.93 -- --- E/e', lat mikhail, 5 TDI Mitral valve Value Ref E', med mikhail, TDI 7.2 cm/sec >=7.0 Peak E 0.52 m/sec -- --- E/e', med mikhail, 7 Peak A 0.91 m/sec ----- TDI Decel time 246 ms ----- E', avg, TDI 8.4 cm/sec Peak E/A ratio 0.6 ----- E/e', avg, TDI 6 <=14 Pulmonic valve Value Ref LVOT Value Ref Peak v, S 0.78 m/sec ----- Peak watson, S 1.1 m/sec Peak grad, S 2.0 mm Hg ----- VTI, S 17.4 cm Mean grad, S 3 mm Hg Tricuspid valve Value Ref TR peak v 2.4 m/sec <=2.8 Ventricular septum Value Ref Peak RV-RA grad, S 23 mm Hg ----- IVS, ED (H) 1.3 cm 0.6 - 1.0 Max TR watson 2.4 m/sec ----- Right ventricle Value Ref Aortic arch Value Ref SIOMARA minor ax, A4C 3.2 cm 1.9 - 3.5 Arch diam 3.1 cm ----- mid Decending aorta Value Ref Left atrium Value Ref Amber peak watson 0.52 m/sec ----- AP dim, ES (L) 2.40 cm 3.00 - 4.00 Inferior vena cava Value Ref ML dim, A4C 4.1 cm Diam 1.5 cm ----- SI dim, A4C 5.6 cm Vol/bsa, ES, 1-p 23 ml/m^2 12 - 37 A4C Right atrium Value Ref SI dim, ES 4.7 cm 3.4 - 5.3 ML dim, ES, A4C 3.4 cm 2.6 - 4.4 SI dim, ES, A4C 4.7 cm 3.4 - 5.3 SI dim/bsa, ES, 2.9 cm/m^2 1.8 - 3.0 A4C Estimated RAP 3 mm Hg Legend: (L) and (H) elen values outside specified reference range. Prepared and electronically signed by Marco Antonio Solano MD 12/22/2018 11:57
--- NOTE | 2018-12-22 16:50 | CONS ---
PULMONARY CONSULTATION REPORT: DATE OF CONSULT: 12/22/18 CONSULTATION REQUESTED BY: Dr. Medina. REASON FOR CONSULT: Evaluation of abnormal CT chest. HISTORY OF PRESENT ILLNESS: The patient is a 78-year-old male with significant smoking history, also with history of dementia, hypertension, arthritis, and alcohol use. The patient presents for evaluation of cough. Recently, he was at [employer], working as director corporate security, has been dehydrated, was not able to drink enough fluids. He felt like heat stroke and tried to drink water and beer when he got home. He started having cough with yellow phlegm, also noticed worsening shortness of breath and decided to come into the ED for further evaluation. The patient denies fevers or chills. He has been feeling poorly recently. He has been having generalized body aches. Had an episode of nausea and decreased appetite during the past week and not having issues anymore. He also reports gradual weight loss over the past year. Denies night sweats or chills. PAST MEDICAL HISTORY: 1. Hypertension. 2. Arthritis. 3. Sciatica. PAST SURGICAL HISTORY: 1. Teeth extraction and facial bone repair below the left eye. 2. Left inguinal hernia repair in 2012. 3. Colonoscopy x2. 4. Bilateral cataracts. MEDICATIONS: 1. Multivitamins. 2. Lisinopril. 3. Ascorbic acid. 4. Aspirin. ALLERGIES: No known drug allergies. FAMILY HISTORY: Cardiac disease. Mother of [place]. Brother of stroke. Reviewed and noncontributory to current complaints. SOCIAL HISTORY: Significant smoking history, a pack every day for 50 years, smoked until recent hospitalization. Alcohol, 4 to 5 beers per day, cut down to 1 to 2. History of cocaine use in the past. REVIEW OF SYSTEMS: All systems reviewed and as per HPI. PHYSICAL EXAM: The patient is lying in bed, in no apparent distress. Vital Signs: Temperature 97.6, pulse 99 beats per minute, respiratory rate 16 per minute, O2 sat 94% on room air, blood pressure 135/82. HEENT: Pupils equal, reactive to light. Mucous membranes moist. Lungs: Diminished air entry, scattered crackles and wheeze. Cardiovascular: S1, S2 present. Regular. Abdomen: Nontender, nondistended, soft. Bowel sounds present. Extremities: Normal range of motion. Skin: No rash or bruise. Neuro: Alert, awake, oriented x3. No focal deficits. DIAGNOSTIC STUDIES/LAB DATA: WBC count 26.9, hemoglobin 12.3, hematocrit 35, platelet count 452. Sodium 127, potassium 3.9, chloride 95, bicarb 19, BUN 30, creatinine 1.01, lactic acid within normal limits. Troponin within normal limits. Chest x-ray and CT scan of the chest were personally reviewed by me. CT scan of the chest showed large loculated left pleural effusion, also with some fluid in the fissure on the left side. The patient with a mass lesion in the right upper lobe measuring about 3 cm. No significant mediastinal or hilar adenopathy noted. IMPRESSION AND RECOMMENDATIONS: 78-year-old male with significant smoking history, alcohol abuse, with some episodes of coughing while eating, presented with cough and shortness of breath and was found to have a loculated left pleural effusion. Suspect infectious etiology; however, given significant smoking history, cannot rule out malignancy. Will schedule the patient for a thoracentesis with ultrasound guidance in the morning. Procedure was discussed in detail with the patient. Associated risks and benefits were thoroughly explained. The patient is agreeable to undergoing the procedure. Risk of pneumothorax was discussed in detail. Further recommendations pending thoracentesis. The above recommendations discussed with Dr. Medina. Thank you for allowing me to participate in the care of your patient. Will follow up with you. [id number]/[facility] #: [id number] HIGINIO
--- NOTE | 2018-12-22 17:05 | PN ---
Subjective Date of Service: 12/22/18 Interval History: Patient feels better today, more energy, less dyspnea. He describes dehydration as cause for admission. Family History: Unchanged from Admission Social History: Unchanged from Admission Past Medical History: Unchanged from Admission Objective Active Medications: Acetaminophen (Tylenol Tab*) 650 mg PO Q4H PRN PRN Reason: FEVER/PAIN Albuterol/Ipratropium (Duoneb (Albuterol 2.5 Mg/Ipratropium 0.5 Mg)) 1 neb INH Q4H PRN PRN Reason: SOB/WHEEZING Folic Acid (Folvite Tab*) 1 mg PO DAILY [facility] Last Admin: 12/22/18 09:03 Dose: 1 mg Heparin Sodium (Porcine) (Heparin Vial(*)) 5,000 units SUBCUT Q8HR [facility] Last Admin: 12/22/18 14:05 Dose: 5,000 units Levofloxacin/Dextrose (Levaquin 750 Mg Ivpremix(*)) 750 mg in 150 mls @ 100 mls /hr IVPB Q48H [facility]; Protocol Sodium Chloride (Ns 0.9% 1000 Ml) 1,000 mls @ 125 mls/hr IV PER RATE [facility] Last Admin: 12/22/18 09:46 Dose: 125 mls/hr Lorazepam (Ativan Tab(*)) 0 - 6 mg PO .PER [facility] PROTOCOL [facility]; Protocol Methylprednisolone Sodium Succinate (Solu-Medrol 40 Mg) 40 mg IV Q12H [facility] Last Admin: 12/22/18 11:15 Dose: 40 mg Multivitamins/Minerals (Theragran/Minerals Tab*) 1 tab PO DAILY [facility] Last Admin: 12/22/18 09:03 Dose: 1 tab Thiamine HCl (Vitamin B-1 Tab*) 100 mg PO DAILY [facility] Last Admin: 12/22/18 09:03 Dose: 100 mg Vital Signs - 8 hr 12/22/18 12/22/18 12/22/18 09:45 11:00 13:45 Temperature 36.3 C 36.5 C 36.4 C Pulse Rate 101 94 99 Respiratory 16 16 16 Rate Blood Pressure 133/67 120/81 135/82 (mmHg) O2 Sat by Pulse 94 95 94 Oximetry 12/22/18 15:15 Temperature 36.3 C Pulse Rate 99 Respiratory 16 Rate Blood Pressure 128/61 (mmHg) O2 Sat by Pulse 92 Oximetry Oxygen Devices in Use Now: None Appearance: alert, no distress Eyes: No Scleral Icterus Neck: NL Appearance and Movements; NL JVP Respiratory: Symmetrical Chest Expansion and Respiratory Effort, - - absent BS, LT base Cardiovascular: NL Sounds; No Murmurs; No JVD Abdominal: NL Sounds; No Tenderness; No Distention Lymphatic: No Cervical Adenopathy Skin: No Rash or Ulcers Neurological: Alert and Oriented x 3 Lines/Tubes/Other Access: Clean, Dry and Intact Peripheral IV Nutrition: Taking PO's Result Diagrams: 12/22/18 06:47 12/22/18 06:47 Additional Lab and Data: Laboratory Tests 12/22/18 12/22/18 12/22/18 00:00 02:40 02:40 Glucose Lactic Acid 0.8 Troponin I 0.03 0.03 12/22/18 06:47 Glucose 106 H Lactic Acid Troponin I Microbiology and Other Data: Microbiology 12/21/18 20:11 Gram Stain - Final Sputum 12/21/18 21:29 Legionella Urinary Antigen - Final Urine Negative Legionella Antigen Streptococcus pneumoniae Ag Screen - Final Negative S. pneumo Antigen Diagnostic Imaging: CT chest: VAMSI nodule, LT effusion Assess/Plan/Problems-Billing Assessment: 78 year old man admitted with dyspnea, dehydration, found to have lung nodules, effusion - Patient Problems (1) Sepsis due to pneumonia Current Visit: Yes Status: Acute Priority: High Code(s): J18.9 - PNEUMONIA , UNSPECIFIED ORGANISM; A41.9 - SEPSIS, UNSPECIFIED ORGANISM SNOMED Code(s): 00716474 Comment: -Sepsis initial treatment successful with levaquin, IV fluid. -Will continue levaquin for CAP (2) COPD with exacerbation Current Visit: Yes Status: Acute Priority: Medium Code(s): J44.1 - CHRONIC OBSTRUCTIVE PULMONARY DISEASE W (ACUTE) EXACERBATION SNOMED Code(s): 496646445 Comment: -Some initial response to IV steroids, nebulizers -continue treatment (3) Pleural effusion Current Visit: Yes Status: Acute Priority: High Code(s): J90 - PLEURAL EFFUSION, NOT ELSEWHERE CLASSIFIED SNOMED Code(s): 24822263 Comment: -Appreciate Dr. Tamez's consult -Plan for thoracentisis tomorrow -Differential includes parapneumonic effusion, lung cancer (4) DVT prophylaxis Current Visit: Yes Status: Acute Priority: Low Code(s): Z29.9 - ENCOUNTER FOR PROPHYLACTIC MEASURES, UNSPECIFIED SNOMED Code(s): 252739004 Comment: -SC heparin (5) Alcohol withdrawal Current Visit: Yes Status: Acute Priority: Medium Code(s): F10.239 - ALCOHOL DEPENDENCE WITH WITHDRAWAL, UNSPECIFIED SNOMED Code(s): 963131243 Comment: -Does not appear to be withdrawing -continue monitoring. Status and Disposition: inpatient
[2018-12-23] MEDS: Heparin VIAL(*) 5000 UNITS/ML VIAL (FIVE THOUSAND) SUBCUT SCH ×3 (06:09→22:44)
[2018-12-23 07:10] LABS: Hematocrit 35 % (42-52); Hemoglobin 12.5 g/dL (14.0-18.0); Mean Corpuscular HGB Conc 35 g/dL (31-36); Mean Corpuscular Hemoglobin 34 pg (27-31); Mean Corpuscular Volume 97 fL (80-94); Mean Platelet Volume 7.3 fL (7.4-10.4); Platelet Count 555 10^3/uL (150-450); Red Blood Count 3.65 10^6 /uL (4.18-5.48); Red Cell Distribution Width 12 % (10-15); White Blood Count 31.4 10^3/uL (3.5-10.8)
[2018-12-23 07:19] LABS: ABS Lymphocytes 0.5 10^3/ul (1.0-4.8); ABS Monocytes 1.1 10^3/ul (0-0.8); ABS Neutrophils 29.8 10^3/ul (1.5-7.7); Lymphocyte % 1.5 %
[2018-12-23 07:31] LABS: BUN/Creatinine Ratio 30.1 (8-20); Calcium 8.3 mg/dL (8.6-10.3); EGFR Non-African American 90.1 (>60); Potassium 3.6 mmol/L (3.5-5.0)
[2018-12-23] MEDS: Multivitamins/Minerals TAB PO SCH (08:23)
[2018-12-23] MEDS: Thiamine TAB* 100 MG TAB PO SCH (08:23)
[2018-12-23] MEDS: Folic Acid TAB* 1 MG PO SCH (08:23)
[2018-12-23] MEDS: methylPREDNISolone SOD 40 MG* 1 ML VIAL IV SCH ×2 (12:15→22:44)
[2018-12-23 14:21] LABS: Body Fluid Source Pleural Fluid
--- NOTE | 2018-12-23 14:39 | PN ---
Progress Note - Progress Note Date of Service: 12/23/18 - Pulm f/u note Note: Pt seen and examined at bedside. Pt with cough, weakness. Active Medications Generic Name Dose Route Start Last Admin Trade Name Freq PRN Reason Stop Dose Admin Acetaminophen 650 mg 12/21/18 21:56 Tylenol Tab* PO Q4H PRN FEVER/PAIN Albuterol/Ipratropium 1 neb 12/21/18 22:05 Duoneb (Albuterol 2.5 Mg/Ipratropium 0.5 Mg) INH Q4H PRN SOB/WHEEZING Folic Acid 1 mg 12/22/18 09:00 12/23/18 08:23 Folvite Tab* PO 1 mg DAILY [facility] Administration Heparin Sodium (Porcine) 5,000 units 12/21/18 22:00 12/23/18 06:09 Heparin Vial(*) SUBCUT 5,000 units Q8HR [facility] Administration Levofloxacin/Dextrose 750 mg in 150 mls @ 100 mls/hr 12/23/18 18:00 Levaquin 750 Mg Ivpremix(*) IVPB Q48H [facility] Protocol Lorazepam 0 - 6 mg 12/21/18 22:00 Ativan Tab(*) PO .PER [facility] PROTOCOL [facility] Protocol Methylprednisolone Sodium Succinate 40 mg 12/21/18 23:00 12/23/18 12:15 Solu-Medrol 40 Mg IV 40 mg Q12H [facility] Administration Multivitamins/Minerals 1 tab 12/22/18 09:00 12/23/18 08:23 Theragran/Minerals Tab* PO 1 tab DAILY [facility] Administration Thiamine HCl 100 mg 12/22/18 09:00 12/23/18 08:23 Vitamin B-1 Tab* PO 100 mg DAILY [facility] Administration Vital Signs Temp Pulse Resp BP Pulse Ox 97.7 F 93 16 105/80 96 12/23/18 11:00 12/23/18 11:00 12/23/18 11:00 12/23/18 11:00 12/23/18 11:00 O/E: Pt in NAD HEENT: PERRLA, no JVD LUngs: Dimnished at left bnase CVS: S1, S2+ Abd: Soft, BS+ Ext: Normal ROM Skin: No rash Neuro: No focal deficits Laboratory Results - last 24 hr 12/23/18 12/23/18 12/23/18 06:34 06:39 13:58 WBC 31.4 H RBC 3.65 L Hgb 12.5 L Hct 35 L MCV 97 H MCH 34 H MCHC 35 RDW 12 Plt Count 555 H D MPV 7.3 L Neut % (Auto) 94.9 Lymph % (Auto) 1.5 [place] % (Auto) 3.5 Eos % (Auto) 0.0 Baso % (Auto) 0.1 Absolute Neuts (auto) 29.8 H Absolute Lymphs (auto) 0.5 L Absolute Monos (auto) 1.1 H Absolute Eos (auto) 0.0 Absolute Basos (auto) 0.0 Absolute Nucleated RBC 0.0 Nucleated RBC % 0.0 Sodium 129 L Potassium 3.6 Chloride 98 L Carbon Dioxide 24 Anion Gap 7 BUN 25 H Creatinine 0.83 Est GFR ( Amer) 109.0 Est GFR (Non-Af Amer) 90.1 BUN/Creatinine Ratio 30.1 H Glucose 180 H Calcium 8.3 L Fluid Source Pleural fluid I/R:78 year old man with signfgicant smoking history, ETOH abuse admitted with dyspnea, dehydration, found to have loculated left effusion and lung mass with same density as pl fluid Pt had thoracentesis at bedside. Pt noted to have multi loculated and complex appearing fluid on left side Fluid appearance concerning for parapneumonic effusion/empyema 250 ml of fluid was removed and sent to lab Cannot r/o malignanct effusion however empyema is high in differential Pt would need surgical chest tube with tpA DNAase inserted through the chest tube for 3 days c/w abx, might need to be broadened awaiting susceptibilities D/w dr Medina
[2018-12-23 15:11] LABS: Body Fluid Mono 1 %
--- NOTE | 2018-12-23 15:18 | PN ---
Subjective Date of Service: 12/23/18 Interval History: Patient had thoracentesis today with Dr. Tamez. He states breathing is better. Spoke with Dr. Tamez, she favors infectious cause of loculated effusion. Family History: Unchanged from Admission Social History: Unchanged from Admission Past Medical History: Unchanged from Admission Objective Active Medications: Acetaminophen (Tylenol Tab*) 650 mg PO Q4H PRN PRN Reason: FEVER/PAIN Albuterol/Ipratropium (Duoneb (Albuterol 2.5 Mg/Ipratropium 0.5 Mg)) 1 neb INH Q4H PRN PRN Reason: SOB/WHEEZING Folic Acid (Folvite Tab*) 1 mg PO DAILY [facility] Last Admin: 12/23/18 08:23 Dose: 1 mg Heparin Sodium (Porcine) (Heparin Vial(*)) 5,000 units SUBCUT Q8HR [facility] Last Admin: 12/23/18 06:09 Dose: 5,000 units Levofloxacin/Dextrose (Levaquin 750 Mg Ivpremix(*)) 750 mg in 150 mls @ 100 mls /hr IVPB Q48H [facility]; Protocol Lorazepam (Ativan Tab(*)) 0 - 6 mg PO .PER [facility] PROTOCOL [facility]; Protocol Methylprednisolone Sodium Succinate (Solu-Medrol 40 Mg) 40 mg IV Q12H [facility] Last Admin: 12/23/18 12:15 Dose: 40 mg Multivitamins/Minerals (Theragran/Minerals Tab*) 1 tab PO DAILY [facility] Last Admin: 12/23/18 08:23 Dose: 1 tab Thiamine HCl (Vitamin B-1 Tab*) 100 mg PO DAILY [facility] Last Admin: 12/23/18 08:23 Dose: 100 mg Vital Signs - 8 hr 12/23/18 12/23/18 12/23/18 08:00 09:00 11:00 Temperature 37.0 C 36.5 C Pulse Rate 104 93 Respiratory 16 16 16 Rate Blood Pressure 160/65 105/80 (mmHg) O2 Sat by Pulse 95 96 Oximetry Oxygen Devices in Use Now: None Appearance: alert, no distress Eyes: No Scleral Icterus Ears/Nose/Mouth/Throat: NL Teeth, Lips, Gums Neck: NL Appearance and Movements; NL JVP Respiratory: Symmetrical Chest Expansion and Respiratory Effort, - - diminished LT base Cardiovascular: NL Sounds; No Murmurs; No JVD, RRR Abdominal: NL Sounds; No Tenderness; No Distention Lymphatic: No Cervical Adenopathy Skin: No Rash or Ulcers Neurological: Alert and Oriented x 3 Lines/Tubes/Other Access: Clean, Dry and Intact Peripheral IV Nutrition: Taking PO's Result Diagrams: 12/23/18 06:34 12/23/18 06:39 Additional Lab and Data: Laboratory Tests 12/23/18 13:58 Fluid Source Pleural fluid Fluid Volume 8 Fluid Color Gina Fluid Appearance Cloudy Fluid WBC 2010 Fluid RBC 632 Fluid Tot Cell Count 100 Fluid Neutrophils 92 Fluid Lymphocytes 7 Fluid Monocytes 1 Microbiology and Other Data: Microbiology 12/21/18 21:29 Urine Legionella Urinary Antigen - Final 12/21/18 21:29 Urine Streptococcus pneumoniae Ag Screen - Final Negative Legionella Antigen Negative S. pneumo Antigen 12/21/18 20:11 Sputum Gram Stain - Final 12/21/18 20:11 Sputum Sputum Culture - Final Normal Anuradha 12/21/18 21:09 Blood Venous Aerobic Blood Culture - Preliminary 12/21/18 21:09 Blood Venous Anaerobic Blood Culture - Preliminary No Growth Day 1 No Growth Day 1 12/21/18 21:04 Blood Venous Aerobic Blood Culture - Preliminary 12/21/18 21:04 Blood Venous Anaerobic Blood Culture - Preliminary No Growth Day 1 No Growth Day 1 Assess/Plan/Problems-Billing Assessment: 78 year old man admitted with dyspnea, dehydration, found to have lung nodule, large LT-sided effusion - Patient Problems (1) Sepsis due to pneumonia Current Visit: Yes Status: Acute Priority: High Code(s): J18.9 - PNEUMONIA , UNSPECIFIED ORGANISM; A41.9 - SEPSIS, UNSPECIFIED ORGANISM SNOMED Code(s): 94432163 Comment: -Sepsis initial treatment appears effective w/ levaquin, IV fluid. -Will continue levaquin for CAP -Briefly discussed with Dr. Jarrett (2) COPD with exacerbation Current Visit: Yes Status: Acute Priority: Medium Code(s): J44.1 - CHRONIC OBSTRUCTIVE PULMONARY DISEASE W (ACUTE) EXACERBATION SNOMED Code(s): 384940086 Comment: -Some initial response to IV steroids, nebulizers -continue treatment (3) Pleural effusion Current Visit: Yes Status: Acute Priority: High Code(s): J90 - PLEURAL EFFUSION, NOT ELSEWHERE CLASSIFIED SNOMED Code(s): 43898991 Comment: -Discussed exudative effusion with -Differential includes parapneumonic effusion, lung cancer -Discussed need for chest tube with Dr. Calixto (4) DVT prophylaxis Current Visit: Yes Status: Acute Priority: Low Code(s): Z29.9 - ENCOUNTER FOR PROPHYLACTIC MEASURES, UNSPECIFIED SNOMED Code(s): 806393480 Comment: -SC heparin Status and Disposition: inpatient
--- NOTE | 2018-12-23 16:35 | PRO ---
THORACENTESIS REPORT: DATE OF PROCEDURE: 12/23/18 PRE-PROCEDURAL DIAGNOSIS: Loculated left pleural effusion. ANESTHESIA: Local anesthesia with lidocaine 4 cc. DESCRIPTION OF PROCEDURE: Informed consent was obtained from the patient prior to the procedure after all the risks and benefits were thoroughly explained. The patient admitted for evaluation of shortness of breath and cough, was found to have large loculated left pleural effusion. A CareFusion 8-[place]aur[place] thoracentesis catheter was utilized for the procedure. The patient was sitting up, leaning forward during the procedure. Strict aseptic precautions and all barrier techniques were utilized. Portable ultrasound was utilized at bedside to localize multiloculated pleural fluid, very complex appearing with a denser pocket of fluid. Area was marked where slightly bigger pocket of fluid was noted. Area was disinfected with chlorhexidine swab. Sterile drape was then applied. Lidocaine was then instilled subcutaneously intradermally down into the pleural space taking precautions. A #11 scalpel blade was utilized at bedside to make stab incision. A CareFusion 8-Nauruan thoracentesis catheter was subsequently inserted under manual suction taking precautions. Catheter was left in place and needle was removed. 250 mL of dark yellow fluid was subsequently drained under manual suction. No further fluid was coming out and catheter was subsequently removed and sterile Band-Aid was applied to the area. Fluid was sent to the lab for further identification. Discussed with Dr. Medina and surgical consultation was recommended for chest tube placement and TPA administration to drain the pockets of fluid. The patient tolerated the procedure well. No complications occurred during the procedure. [id number]/[facility] #: [id number] HIGINIO
[2018-12-23] MEDS ORDERED: Levofloxacin 750 MG IVPREMIX(* 750 MG/150 ML BAG IVPB SCH (18:00)
[2018-12-24] MEDS: Heparin VIAL(*) 5000 UNITS/ML VIAL (FIVE THOUSAND) SUBCUT SCH ×2 (05:57→14:33)
[2018-12-24 06:42] LABS: Hematocrit 31 % (42-52); Mean Corpuscular HGB Conc 35 g/dL (31-36); Mean Corpuscular Hemoglobin 35 pg (27-31); Mean Corpuscular Volume 98 fL (80-94); Mean Platelet Volume 7.2 fL (7.4-10.4); Platelet Count 497 10^3/uL (150-450); Red Blood Count 3.17 10^6 /uL (4.18-5.48); Red Cell Distribution Width 12 % (10-15)
[2018-12-24 06:45] LABS: ABS Lymphocytes 0.7 10^3/ul (1.0-4.8); ABS Monocytes 0.7 10^3/ul (0-0.8); ABS Neutrophils 26.6 10^3/ul (1.5-7.7); Lymphocyte % 2.4 %
[2018-12-24 07:00] LABS: BUN/Creatinine Ratio 31.8 (8-20); Calcium 8.5 mg/dL (8.6-10.3); EGFR African American 101.9 (>60); EGFR Non-African American 84.2 (>60); Potassium 4.2 mmol/L (3.5-5.0)
[2018-12-24] MEDS ORDERED: predniSONE TAB* 20 MG PO SCH (09:00)
--- NOTE | 2018-12-24 10:33 | PN ---
Progress Note - Progress Note Date of Service: 12/24/18 Note: Spoke with Dr. Tamez last night, patient needs chest tube due to loculations. Spoke with Dr Shirley, we do not have thoracic surgery available at this time at this hospital. Will arrange transfer to [facility] or [facility]. Patient aware. Transfer Center aware.
[2018-12-24] MEDS: Multivitamins/Minerals TAB PO SCH (10:34)
[2018-12-24] MEDS: Folic Acid TAB* 1 MG PO SCH (10:34)
[2018-12-24] MEDS: Thiamine TAB* 100 MG TAB PO SCH (10:34)
[2018-12-24 12:06] LABS: Lactate Dehydrogenase, BF 3940 U/L
--- NOTE | 2018-12-24 12:51 | TRS ---
CC: Dr. Jacobo; Dr. Tamez; Ms. Sara Buckley TRANSFER SUMMARY: DATE OF ADMISSION: 12/21/18 DATE OF TRANSFER: 12/24/18 ACCEPTING PHYSICIAN FOR THE TRANSFER: Dr. Jacobo , Thoracic Surgery, [facility]. PRIMARY DIAGNOSIS: Loculated left-sided pleural effusion. SECONDARY DIAGNOSES: 1. A 2.5 x 3 cm spiculated mass, left upper lobe. 2. Alcohol abuse. 3. Hypertension. 4. Degenerative joint disease of the spine. 5. Bilateral sciatica. 6. Tobacco abuse, [id number] history. MEDICATIONS AT TIME OF TRANSFER: 1. Acetaminophen as needed. 2. Albuterol/ipratropium 1 nebulizer q.4 hours as needed for shortness of breathing and wheezing. 3. Folic acid 1 mg p.o. daily. 4. Heparin 5000 units subcu q.8 hours. 5. Levofloxacin 750 mg IV q.48 hours. 6. Multivitamin 1 tab p.o. daily. 7. Prednisone 40 mg p.o. daily. 8. Thiamine 100 mg p.o. daily. CONSULTATIONS: Dr. Tamez of Pulmonology. PROCEDURES: Thoracentesis on 12/23/18, which was performed under ultrasound guidance. The fluid res ults showed kendell-colored fluid, 2010 white cells, 632 red cells, and of the white cells 92% neutroph ils, 7% lymphocytes, 1% monocytes. Microbiology and pathology/cytology are pending, as are the total body fluid, total protein and glucose. HOSPITAL COURSE: The patient presented to the emergency department on 12/21/18 complaining of cough and fatigue. He felt he had heat stroke because he had worked all weekend at a large [employer]. He was found to have effusion and infiltrate on chest x-ray, which led to the CT as described ab ove. Initial workup included an EKG that showed sinus tachycardia and low voltage. The patient had an echocardiogram completed on admission as well, which showed ejection fraction of 55% to 60%, no wa ll motion abnormalities, mild to moderate increased wall thickness, no significant valvular disease o ther than the obvc-de-gaxgnrcw mitral regurgitation. Initial laboratory studies showed a white cell count of 34, which fell to 28 on the day of discharge. The patient had a hemoglobin of 14.5 initiall y, which fell to 11.0 with hydration. Platelet count has been elevated at 500 to 630. The initial s miya sodium was 124, improved to 132 with hydration. Initial anion gap was 10, which worsened to 13, but then corrected. Serum osmolality was 272. Troponin was 0.05 on admission, but 0.03 on repeat. BNP was 214. Lactic acid was initially 2.2 and fell to 1.1 on admission. The patient was teated fo r pneumonia with IV Levaquin. Pulmonology consult was obtained as above which led to thoracentesis. The patient was also treated for COPD exacerbation with inhaled albuterol, ipratropium, and IV Solu- Medrol and oral prednisone. The patient has had some slow improvement in his breathing, was not depe ndent on oxygen. Dr. Tamez's opinion is that the patient has an infectious process causing the effu sions and that further exploration of chest cavity with a VAT and/or a chest tube would lead to full resolution of his effusion. We do not have cardiothoracic surgery at this hospital, so the patient n eeds to be transferred to a high level of care. The patient also has this lung nodule, which may be infectious or neoplastic and which needs to be biopsied at some point soon. The patient is aware of all the diagnoses and agrees to be transferred. DISPOSITION: To [facility] Cardiothoracic Surgery Service. CONDITION: Stable. DIET: Regular. ACTIVITY: As tolerated. STATUS: Inpatient. FOLLOWUP: Followup will be arranged per the hospital stay. [id number]/[facility] #: [id number]
[2018-12-24 16:41] VITALS: BP 133/71
== END 2018-12-24 18:16 | disposition short-term general hospital (02) | DRG 871 ==
LOC: ED 15:13 → MEDTELE 21:56
PROVIDERS: ADMIT Internal Medicine; ATTEND Internal Medicine
PROC: 0W9B3ZZ Drainage of Left Pleural Cavity, Percutaneous Approach (ICD-10-PCS; principal; 2018-12-23)
DX: A41.9 Sepsis, unspecified organism (principal); J18.9 Pneumonia, unspecified organism; N17.9 Acute kidney failure, unspecified; J90 Pleural effusion, not elsewhere classified; E87.2 Acidosis; J44.0 Chronic obstructive pulmonary disease with (acute) lower respiratory infection; J44.1 Chronic obstructive pulmonary disease with (acute) exacerbation; E87.1 Hypo-osmolality and hyponatremia; F10.239 Alcohol dependence with withdrawal, unspecified; E86.0 Dehydration; F03.90 Unspecified dementia, unspecified severity, without behavioral disturbance, psychotic disturbance, mood disturbance, and anxiety; R91.8 Other nonspecific abnormal finding of lung field; I10 Essential (primary) hypertension; M54.32 Sciatica, left side; M54.31 Sciatica, right side; F17.210 Nicotine dependence, cigarettes, uncomplicated; M16.0 Bilateral primary osteoarthritis of hip; M47.9 Spondylosis, unspecified; R74.8 Abnormal levels of other serum enzymes; Z82.49 Family history of ischemic heart disease and other diseases of the circulatory system; Z82.3 Family history of stroke; Z79.82 Long term (current) use of aspirin; Z79.899 Other long term (current) drug therapy
CPT/HCPCS: 36415; 71046; 71260; 76604; 80048; 80053; 81003; 82436; 82550; 82945; 83605; 83615; 83880; 83930; 84133; 84157; 84300; 84484; 85025; 85610; 85730; 86140; 87040; 87070; 87205; 87899; 88112; 89051; 93005; 93306; 99284; 99406; A9270-GY; J1644; J2920; J3411; J7512; Q9967

== ENCOUNTER 2019-01-04 17:58 | Inpatient (IN) | payer MEDICARE ==
--- NOTE | 2019-01-04 18:37 | ED ---
Complex/Multi-Sys Presentation - HPI Summary HPI Summary: The patient is a 78 y/o M presenting to [facility] accompanied by niece/health proxy with a chief complaint of elevated WBCs today, per labs from PCP. He reports that he was discharged from [facility] four days ago following chest tube placement for fluid on the lungs. He states there is discharge coming from the placement site, and the drainage being collected from the tube itself appears bloody and is drained about 3-4 times a day. He had follow up with his PCP today, which is when he had elevated WBCs on his blood work. He additionally c/o SOB and productive cough with either dark or clear phlegm. He denies any fever, chills, erythema of eyes, sore throat, CP, abdominal pain, N/V, dysuria, hematuria, myalgia, edema, rash, or dizziness. PMHx: HTN, chest tube. Heavy every day cigarette smoker, daily EtOH, no substance use. - History Of Current Complaint Chief Complaint: EDGeneral Time Seen by Provider: 01/04/19 18:29 Hx Obtained From: Patient, Family/[employer] Technician - niece/health care proxy Onset/Duration: Lasting Hours, Still Present Timing: Hours Severity Currently: Moderate Severity Initially: Mild Aggravating Factor(s): nothing Alleviating Factor(s): nothing Associated Signs And Symptoms: Positive: SOB, Cough - productive, Other - NEGATIVE: chills, erythema of eyes, sore throat, hematuria, myalgia, rash. Negative: Dizziness, Chest Pain, Edema, Nausea, Vomiting, Abdominal Pain, Dysuria, Fever - Allergies/Home Medications Allergies/Adverse Reactions: Allergies Allergy/AdvReac Type Severity Reaction Status Date / Time No Known Allergies Allergy Verified 01/04/19 18:02 Home Medications: Home Medications Amoxicillin/Clavulanate TAB* [Augmentin TAB 875*] 875 mg PO BID 01/04/19 [ History Confirmed 01/04/19] Aspirin 81 mg CHEW TAB* 81 mg PO DAILY 01/04/19 [History Confirmed 01/04/19] Ferrous Sulfate TAB* 325 mg PO TID 01/04/19 [History Confirmed 01/04/19] Folic Acid TAB* [Folvite TAB*] 1 mg PO DAILY 01/04/19 [History Confirmed ] Glucosamine Sulfate Dipot Chlr [Glucosamine] 1,000 mg PO DAILY 01/04/19 [ History Confirmed 01/04/19] Hydrocodone/Acetaminophen [Hydrocodone-Acetamin 5-325 mg] 1 tab PO Q6HR PRN 10/18 [History Confirmed 01/04/19] Lisinopril/HCTZ 20/12.5(NF) [Zestoretic 20/12.5(NF)] 1 tab PO DAILY 01/04/19 [ History Confirmed 01/04/19] Multivitamin,Ther and Minerals [Multivitamins with Minerals Hp] 1 cap PO DAILY 01/04/19 [History Confirmed 01/04/19] Nicotine PATCH 21 MG/24 HR* 21 mg TRANSDERM DAILY 01/04/19 [History Confirmed ] Vitamin A Palmitate [Vitamin A] 10,000 unit PO DAILY 01/04/19 [History Confirmed 01/04/19] guaiFENesin [Mucinex] 600 mg PO BID 01/04/19 [History Confirmed 01/04/19] PMH/Surg Hx/FS Hx/Imm Hx Endocrine/Hematology History: Denies: Hx Diabetes Cardiovascular History: Reports: Hx Hypertension - controlled with medication Denies: Other Cardiovascular Problems/Disorders Respiratory History: Denies: Other Respiratory Problems/Disorders GI History: Denies: Other GI Disorders History: Denies: Hx Renal Disease, Other Problems/Disorders Musculoskeletal History: Reports: Hx Arthritis - lower back, bilateral hips- left hip greater than right, Other Musculoskeletal History - Bilateral sciatic and groin pain,left greater than right,Hx inguinal hernia Sensory History: Reports: Hx Cataracts - Bilateral Denies: Hx Contacts or Glasses, Hx Hearing Aid Opthamlomology History: Reports: Hx Cataracts - Bilateral Denies: Hx Contacts or Glasses Neurological History: Denies: Other Neuro Impairments/Disorders - Surgical History Surgical History: Yes Surgery Procedure, Year, and Place: Teeth Extraction, office. 1976 Facial bone repair below left eye, office. Left Inguinal Hernia Rep[place] [facility] [place] Anesthesia Reactions: No Infectious Disease History: No Infectious Disease History: Denies: Traveled Outside the [place] in Last 30 Days - Family History Known Family History: Positive: Cardiac Disease - mother of [place], brother of stroke - Social History Alcohol Use: Daily Alcohol Amount: BEER- 4-5 beers a day Hx Substance Use: No Substance Use Type: Reports: None Hx Tobacco Use: Yes Smoking Status (MU): Heavy Every Day Tobacco Smoker Type: Cigarettes Amount Used/How Often: 1 PPD for 50+ years Have You Smoked in the Last Year: Yes Review of Systems Positive: Other - chest tube placement with drainage at site of placement. Negative: Fever, Chills Negative: Erythema Negative: Sore Throat Negative: Chest Pain Positive: Shortness Of Breath, Cough - productive Negative: Abdominal Pain, Vomiting, Nausea Negative: dysuria, hematuria Negative: Myalgia, Edema Negative: Rash Neurological: Other - NEGATIVE: dizziness All Other Systems Reviewed And Are Negative: Yes Physical Exam - Summary Physical Exam Summary: Constitutional: Well-developed, Well-nourished, Alert. (-) Distressed Skin: Warm, Dry HENT: Normocephalic; Atraumatic Eyes: Conjunctiva normal Neck: Musculoskeletal ROM normal neck. (-) JVD, (-) Stridor, (-) Tracheal deviation Cardio: Rhythm regular, rate normal, Heart sounds normal; Intact distal pulses; The pedal pulses are 2+ and symmetric. Radial pulses are 2+ and symmetric. (-) Murmur Pulmonary/Chest wall: Serosanguinous drainage from the chest tube which appears to be well sutured in place with no significant leak. Slightly diminished breath sound on left. Effort normal. (-) Respiratory distress, (-) Wheezes, (-) Rales Abd: Soft, (-) tenderness, (-) Distension, (-) Guarding, (-) Rebound Musculoskeletal: (-) Edema Lymph: (-) Cervical adenopathy Neuro: Alert, Oriented x3 Psych: Mood and affect Normal Triage Information Reviewed: Yes Vital Signs On Initial Exam: Initial Vitals Temp Pulse Resp BP Pulse Ox 99.6 F 87 20 111/90 98 01/04/19 17:59 01/04/19 17:59 01/04/19 17:59 01/04/19 17:59 01/04/19 17:59 Vital Signs Reviewed: Yes Diagnostics - Vital Signs Vital Signs Temp Pulse Resp BP Pulse Ox 01/04/19 17:59 99.6 F 87 20 111/90 98 - Laboratory Result Diagrams: 01/05/19 15:18 01/05/19 05:48 Lab Statement: Any lab studies that have been ordered have been reviewed, and results considered in the medical decision making process. - EKG 1839 Cardiac Rate: NL - 83 bpm EKG Rhythm: Sinus Rhythm Summary of EKG Findings: NSR at 83 bpm. No STEMI. Re-Evaluation - Re-Evaluation First Eval Re-Evaluation Time: 19:00 Comment: I discussed admission with the patient. Complex Multi-Symp Course/Dx Course Of Treatment: Patient is a 78 y/o M accompanied by niece/health proxy with a cc of elevated WBCs, per PCPs blood tests today, and concern for drainage of the chest tube he had placed last week secondary to fluid on his lungs. Additionally c/o SOB and productive cough. Upon physical exam, the patient exhibits serosanguinous drainage from the chest tube which appears to be well sutured in place with no significant leak and slightly diminished breath sound on left. Blood work reveals WBCs of 18.1, RBCs of 2.99, Hgb of 98, Hct of 29, MCV of 96, MCH of 33, RDW of 17, plt count of 630, abs neuts of 157, abs monos of 1.2, BUN/creatinine of 20.6, glucose of 103, alkaline phosphatase of 112, and total protein of 6.2. EKG at 1839 reveals NSR at [address] I spoke with Dr. Leone, hospitalist, and he accepts the patient for admission at 1900. Patients dx empyema, leukocytosis. - Diagnoses Provider Diagnoses: Empyema, Leukocytosis - Physician Notifications Discussed Care Of Patient With: Dori Leone - hospitalist Time Discussed With Above Provider: 19:00 Instructed by Provider To: Other - Dr. Leone accepts pt for admission. Discharge ED - Sign-Out/Discharge Documenting (check all that apply): Patient Departure - Patient is accepted for admission by Dr. Leone. Patient Received Moderate/Deep Sedation with Procedure: No - Discharge Plan Condition: Stable Disposition: ADMITTED TO [facility] - Billing Disposition and Condition Condition: STABLE Disposition: Admitted to [facility] - Attestation Statements Document Initiated by Scribe: Yes Documenting Scribe: Rimma Linares Provider For Whom Scribe is Documenting (Include Credential): Dr. Miguel Awad MD Scribe Attestation: Rimma Hansen, scribed for Dr. Miguel Awad MD on 01/19/19 at 1424. Scribe Documentation Reviewed: Yes Provider Attestation: The documentation as recorded by the scribe, Rimma Linares accurately reflects the service I personally performed and the decisions made by me, Dr. Miguel Awad MD Status of Scribe Document: Viewed
[2019-01-04 19:34] LABS: ABS Eosinophils 0.1 10^3/ul (0-0.6); ABS Lymphocytes 1.1 10^3/ul (1.0-4.8); ABS Monocytes 1.2 10^3/ul (0-0.8); ABS Neutrophils 15.7 10^3/ul (1.5-7.7); Eosinophil % 0.3 %; Hematocrit 29 % (42-52); Hemoglobin 9.8 g/dL (14.0-18.0); Lymphocyte % 6.1 %; Mean Corpuscular HGB Conc 34 g/dL (31-36); Mean Corpuscular Hemoglobin 33 pg (27-31); Mean Corpuscular Volume 96 fL (80-94); Mean Platelet Volume 7.5 fL (7.4-10.4); Platelet Count 630 10^3/uL (150-450); Red Blood Count 2.99 10^6 /uL (4.18-5.48); Red Cell Distribution Width 17 % (10-15); White Blood Count 18.1 10^3/uL (3.5-10.8)
[2019-01-04 19:49] LABS: Albumin 3.3 g/dL (3.2-5.2); Albumin/Globulin Ratio 1.1 (1-3); BUN/Creatinine Ratio 20.6 (8-20); Calcium 8.7 mg/dL (8.6-10.3); EGFR African American 81.3 (>60); EGFR Non-African American 67.2 (>60); Globulin 2.9 g/dL (2-4); Potassium 3.5 mmol/L (3.5-5.0); Total Bilirubin 0.6 mg/dL (0.2-1.0); Total Protein 6.2 g/dL (6.4-8.9)
[2019-01-04] MEDS ORDERED: Acetaminophen TAB* 325 MG PO PRN (20:32)
[2019-01-04] MEDS ORDERED: HYDROcodone/ACETAMIN 5-325 MG* 1 TAB PO PRN (20:58)
[2019-01-04] MEDS: Amoxicillin/Clavulanate TAB* 875 MG PO SCH (23:22)
[2019-01-04] MEDS: Ferrous Sulfate TAB* 325 MG PO SCH (23:23)
[2019-01-04] MEDS: guaiFENesin ER TAB 600 MG PO SCH (23:23)
--- NOTE | 2019-01-05 01:21 | HP ---
CC: Dr. Sara Buckley * HISTORY AND PHYSICAL: DATE OF ADMISSION: 01/04/19 PROVIDER: Meggan Banuelos NP. PRIMARY CARE PROVIDER: Sara Buckley MD. ATTENDING PHYSICIAN WHILE IN THE HOSPITAL: Tian Leone MD * (dictated by Meggan Banuelos NP). CHIEF COMPLAINT: Weakness, elevated white count. HISTORY OF PRESENT ILLNESS AND HOSPITAL COURSE: Mr. Ceballos is a 78-year-old male with a past medical history significant for hypertension, COPD, recent sepsis and pneumonia on 12/21/18, history of alcohol abuse, degenerative disk disease, recent VATS with decortication procedure at [facility], status post left chest tube, who presented to the emergency room with complaints of generalized weakness. The patient does report that he was seen in his primary care doctor's office today and had routine lab work drawn. Due to the findings of an elevated white count, the patient was instructed to report to the emergency room for further evaluation. The patient reports that he was discharged from [facility] on , 12/31/18, after having a VATS procedure with decortication and a left chest tube placed for loculated pleural effusion. The patient reports that he continues to have cough and congestion, but no real changes in any of his symptoms. He does have some mild shortness of breath with exertion. The patient does report that he has been able to ambulate and has been ambulating with a cane, but continues to feel weak. The patient is currently living with his niece, Kosta, who is helping to care for the patient at home. The niece was concerned about caring for the patient at home due to the increased output in his chest tube and needing his drainage container emptied frequently and his continued weakness, so they presented to the emergency room. The patient denies any fevers. He does report occasional chills. Denies any unintended weight loss. He denies chest pain or edema. He does report a cough, occasionally blood-tinged sputum. He does report some shortness of breath with exertion, but denies any nausea, vomiting, diarrhea, or abdominal pain. No hematuria. No urinary symptoms. He does report generalized weakness. No visual complaints, dysphagia, arthralgias, myalgias, rashes, lesions, or open sores. Due to his leukocytosis and weakness, we were asked to see and evaluate the patient for admission. PAST MEDICAL HISTORY: Significant for: 1. Hypertension. 2. Arthritis. 3. Bilateral sciatic and groin pain. 4. COPD. 5. Recent history of sepsis with pneumonia on 12/21/18. 6. History of alcohol abuse. 7. Degenerative disk of the spine. 8. Recent loculated pleural effusion, status post VATS and decortication at [facility], status post left chest tube which is currently in place. PAST SURGICAL HISTORY: 1. Teeth extraction. 2. Facial bone repair below the left eye. 3. Inguinal hernia repair. 4. Colonoscopy x2. 5. Bilateral cataracts. 6. Left chest tube placement. 7. VATS with decortication procedure. HOME MEDICATIONS: 1. Augmentin 875 mg p.o. b.i.d. 2. Aspirin 81 mg p.o. daily. 3. Ferrous sulfate 325 mg p.o. t.i.d. 4. Folic acid 1 mg p.o. daily. 5. Lisinopril/hydrochlorothiazide 20/12.5 one tablet p.o. daily. 6. Nicotine patch 21 mg transdermally. 7. Guaifenesin 600 mg p.o. b.i.d. 8. Hydrocodone 1 tab p.o. q.6 hours as needed. 9. Multivitamin 1 tab p.o. daily. 10. Vitamin A 10,000 units p.o. daily. 11. Glucosamine 1000 units p.o. daily. ALLERGIES: No known drug allergies. FAMILY HISTORY: Mother from an [place]. Brother from a stroke. No reported history of diabetes or cancer within the family. SOCIAL HISTORY: The patient is a heavy smoker, a pack per day for over 50 years. He does report that he is down to smoking 4 cigarettes daily. The patient reports he has used to drink beer, but has cut down to only a couple of beers. He denies any illicit drug use. He is currently living with his niece Amelie, her phone number is [phone]. She is the surrogate decision maker in the event he is unable to make his own decisions. He is a full code. REVIEW OF SYSTEMS: A 14-point review of systems was completed. All pertinent positives were mentioned in the HPI, otherwise were negative. PHYSICAL EXAMINATION GENERAL: At this time, Mr. Ceballos is a 78-year-old male. He is alert and oriented, resting on the stretcher in the emergency room. He does not appear to be in any acute distress, respirations are easy and even. VITAL SIGNS: Blood pressure 130/71, heart rate is 82, respirations 16, O2 saturation 97% on room air, temperature was 98.4. HEENT: Head is atraumatic, normocephalic. Eyes: EOMs are intact. Sclerae anicteric and not pale. Oral mucosa appeared to be moist. NECK: Supple. LUNGS: Diminished with rhonchi in the left base. He does have a chest tube draining serosanguineous drainage noted to the left chest. He does have subcutaneous emphysema noted to the left chest up to the axillary and left shoulder. There is no tracheal deviation and no shortness of breath. He does have good lung expansion, and again his O2 saturation is 97% to 99% on room air. CARDIAC: S1, S2. Irregular rate and rhythm. No rubs or gallops. ABDOMEN: Soft and nontender. Bowel sounds are present x4. MUSCULOSKELETAL: He is able to move all 4 extremities. There is no clubbing or cyanosis. There is no edema. NEUROLOGIC: He is awake, alert, oriented x3. Speech is clear. Thought process is intact. There are no gross focal deficits. SKIN: He does have a healing incision noted to his left posterior back. There is no surrounding erythema. Does have some ecchymosis noted to bilateral arms. LABORATORY DATA AND DIAGNOSTIC STUDIES: WBCs were 18.1, RBCs 2.99, hemoglobin 9.8, hematocrit was 29, platelet count was 630. Sodium was 136, potassium 3.5, chloride 101, carbon dioxide was 28, anion gap of 7, BUN was 22, creatinine 1.07 , glucose was 103. Lactic acid was 0.8. Calcium 8.7. Total bilirubin 0.60. AST was 15, ALT was 27, alkaline phosphatase was 112. He had electrocardiogram, which showed sinus rhythm at a rate of 83 with PACs. He had a chest x-ray as an outpatient, radiologist's impression: Left chest tube in place, there is likely reexpansion of the left lung base, left pleural effusion is significantly improved since previous exam on 12/21/18, subcutaneous emphysema was noted. ASSESSMENT AND PLAN: Mr. Ceballos is a 78-year-old male who had a recent admission for sepsis related to pneumonia and a loculated pleural effusion, who was transferred to [facility] for VATS procedure and is now with a chest tube in place, who presented to the emergency room with generalized weakness and inability to care for his chest tube at home as well as elevated white count. He will be admitted under observation for: 1. Leukocytosis. The patient originally back on 12/21/18 had a white count of 34,000. His white count has continued to trend down. He did have white count earlier today, which was 21,000. His repeat white count this afternoon was 18. The patient does meet SIRS criteria with elevated white count and respirations of 24, but at this time, does not appear to be acutely infected. The patient is currently on p.o. antibiotics, Augmentin 875 mg. He has received 3 days worth. He is supposed to complete a 14-day course of Augmentin b.i.d for pneumonia. We will continue Augmentin 875 as it does appear his white count is trending down and the patient is afebrile with no new source of infection at this time. I will get a urine. He does have blood cultures that are currently pending. I will get a sputum culture if the patient is able to produce a sputum culture, and we will continue to monitor. I have request records from [facility] to review recent blood work. Will repeat CBC in the AM. 2. Left chest tube. The patient does have a left chest tube that is in place. X- ray shows reexpansion of the left lung and decrease in the pleural effusion. The patient is status post VATS procedure at [facility], recently discharged home on 12/31/18. The patient does have crepitus noted to the left chest around the left chest tube. I will get a CT of his chest to further evaluate chest tube placement and subcutaneous emphysema. The patient will need to have consultation with Surgery and Pulmonology in the morning. At this time, the patient has no acute respiratory distress. He is able to maintain O2 saturations at 97%. His respirations are easy and even. He does have equal lung expansion and a moist congestive cough is noted. Chest tube is draining serosanguineous drainage. 3. Hypertension. I will hold his lisinopril/hydrochlorothiazide for a systolic blood pressure less than 110. 4. Thrombocytosis. I suspect this is acute phase reaction. The patient has had an elevated platelet count on 12/21/18. 5. Anemia. Niece reports that the patient did recieve blood transfusion while at [facility], will conitnue monitor and repeat CBC in the AM. 6. Weakness. The patient does complain of generalized weakness. I suspect this is related to his recent hospital admission, recent illness with diagnosis of sepsis and pneumonia and status post VATS procedure with a left chest tube. I suspect that his weakness is related to deconditioning due to his recent hospitalization. I will order PT and OT for further evaluation. 7. FEN: The patient can have a regular diet. 8. Code status: He is a full code. 9. DVT prophylaxis: I will place him on SCDs. TIME SPENT: Time spent on this admission was 60 minutes, greater than half that time was spent at the bedside reviewing events leading thus far to his hospitalization, performing physical exam, and reviewing my plan of care. I have discussed this with my attending Dr. Tian Leone, he is in agreement with my plan. MEGGAN BANUELOS, [employer] [id number]/[facility] #: [id number] [facility]
[2019-01-05 04:12] LABS: Urine Appearance Clear; Urine Bacteria Absent (Absent); Urine Bilirubin Negative (Negative); Urine Blood 1+ (Negative); Urine Color Yellow; Urine Glucose Negative (Negative); Urine Ketones Trace (Negative); Urine Nitrite Negative (Negative); Urine Protein Negative (Negative); Urine Red Blood Cell Absent (Absent); Urine Specific Gravity 1.018 (1.010-1.030); Urine Urobilinogen Negative (Negative); Urine White Blood Cell Absent (Absent)
[2019-01-05 06:12] LABS: ABS Eosinophils 0.1 10^3/ul (0-0.6); ABS Lymphocytes 0.6 10^3/ul (1.0-4.8); ABS Neutrophils 12.9 10^3/ul (1.5-7.7); Eosinophil % 0.6 %; Hematocrit 23 % (42-52); Hemoglobin 7.6 g/dL (14.0-18.0); Lymphocyte % 4.3 %; Mean Corpuscular HGB Conc 33 g/dL (31-36); Mean Corpuscular Hemoglobin 32 pg (27-31); Mean Corpuscular Volume 96 fL (80-94); Mean Platelet Volume 7.4 fL (7.4-10.4); Platelet Count 480 10^3/uL (150-450); Red Blood Count 2.37 10^6 /uL (4.18-5.48); Red Cell Distribution Width 17 % (10-15); White Blood Count 14.7 10^3/uL (3.5-10.8)
[2019-01-05 06:28] LABS: BUN/Creatinine Ratio 26.1 (8-20); Calcium 7.7 mg/dL (8.6-10.3); EGFR African American 96.8 (>60); Potassium 3.3 mmol/L (3.5-5.0)
[2019-01-05] MEDS: guaiFENesin ER TAB 600 MG PO SCH ×2 (10:06→20:08)
[2019-01-05] MEDS: Aspirin 81 mg CHEW TAB* 81 MG TAB.CHEW PO SCH (10:06)
[2019-01-05] MEDS: Amoxicillin/Clavulanate TAB* 875 MG PO SCH ×2 (10:06→20:08)
[2019-01-05] MEDS: Multivitamins/Minerals TAB PO SCH (10:06)
[2019-01-05] MEDS: Folic Acid TAB* 1 MG PO SCH (10:06)
[2019-01-05] MEDS: KCL 20 MEQ/100 ML IVPREMIX* 20 MEQ/100 ML BAG IV SCH ×2 (10:07→13:59)
[2019-01-05] MEDS: Ferrous Sulfate TAB* 325 MG PO SCH ×3 (10:07→20:08)
[2019-01-05] MEDS: Nicotine PATCH 21 MG/24 HR* PATCH TRANSDERM SCH (11:40)
--- NOTE | 2019-01-05 14:16 | CONS ---
CONSULTATION REPORT: DATE OF CONSULT: 01/05/19 REFERRING PROVIDER: ILENE Okeefe, hospitalist. CHIEF COMPLAINT/REASON FOR CONSULT: Existing left-sided chest tube with left chest wall subcutaneous air. HISTORY OF PRESENT ILLNESS: Mr. Matt Ceballos is a 78-year-old gentleman with a history significant for hypertension, obstructive lung disease, sepsis and pneumonia, and history of alcohol abuse, who recently underwent a VATS with decortication procedure at [facility] in [place] with placement of a left chest tube. He had been discharged home with the tube to drainage on an apparent water seal. He has followup arrangements with his thoracic surgeon at [facility]. Apparently, he was noted to have some generalized weakness and was seen in his primary care doctor's office, who was concerned about an elevated white blood cell count and he was subsequently admitted. He complained of no shortness of breath or chest discomfort. He felt that the drain may have been draining somewhat slightly more in the last several days and he is living with his niece presently. On admission last night, he was noted to be afebrile with no tachycardia. Initially, he had an elevated white blood cell count of 21,000, down to 14,000 today, but he has been started on antibiotics. He underwent a CT scan of the chest, which I reviewed. This shows the chest tube in good position up into the left apex with a small tiny apical pneumothorax. There was some minimal effusion at the base. There was also subcutaneous air in the left chest. Surgery consult was obtained for advice concerning the tube and pulmonary management. PAST MEDICAL HISTORY: 1. Hypertension. 2. Arthritis. 3. COPD. 4. History of alcohol abuse. 5. Recent episodes of sepsis and pneumonia. 6. Degenerative joint disease. PAST SURGICAL HISTORY: 1. VATS device with decortication and left chest tube placement. Also on a CT scan, it was noted that he may have had a spiculated mass in the left upper lobe and this appears to be not present on the last night's chest CT. We do not have the operative report. 2. Inguinal hernia repair. 3. Colonoscopy. 4. Teeth extraction. MEDICATIONS: Include: 1. Augmentin. 2. Aspirin. 3. Ferrous sulfate. 4. Lisinopril. 5. Nicotine. 6. Hydrocodone. 7. Multivitamin. ALLERGIES: He has no known drug allergies. SOCIAL HISTORY: He is a heavy smoker about a pack a day over 50 years. He does report that he is down smoking about 4 cigarettes daily. He used to drink beer, but has cut down, only a couple of beers daily. He denies any illicit drug abuse. He lives with his niece, and she is his surrogate decision maker. REVIEW OF SYSTEMS: A 14-point review of systems was completed. All pertinent positives are mentioned above. PHYSICAL EXAM: Temperature 98.5, pulse 76, blood pressure 103/52. General: He is a slender, elderly gentleman, appears to be somewhat older than his stated age. Trachea was midline. He has some subcutaneous air and crepitus along the supraclavicular area as well as the left lateral chest wall. His lungs were clear to auscultation with normal respiratory effort, although there are some slight decreased breath sounds on the left. He has a left chest tube exiting through the lateral chest wall attached to a drainage catheter and apparent Heimlich tube. There is no drainage around the tube, redness, or signs of infection. Heart was regular rate and rhythm without murmurs, rubs, or gallops. His abdomen is soft and nondistended. DIAGNOSTIC STUDIES/LAB DATA: Laboratory values not pertinent, otherwise as per above. I did review the CT scan of the chest. IMPRESSION AND PLAN: Status post VATS device with apparent decortication and chest tube placement at [place] within the last several weeks. He may have had a spiculated mass removed as well, but the pathology and operative reports are not available at this time. He shows no signs of shortness of breath or pneumothorax. The subcutaneous air is of no concern and the tube itself appears to be draining well and he seems to be doing well overall. i would continue his present care as he appears to be recovering nicely. At this point, I have no further recommendations and recommend any further questions concerning the management of his postoperative course he be referred to his thoracic surgeon at the [facility] as we do not perform thoracic services here of this nature. I personally discussed his care with Zofia Ballard this morning after seeing the patient. Thank you very much for this consultation. [id number]/[facility] #: [id number] HIGINIO
[2019-01-05 15:24] LABS: ABS Eosinophils 0.1 10^3/ul (0-0.6); ABS Lymphocytes 0.7 10^3/ul (1.0-4.8); ABS Neutrophils 14.5 10^3/ul (1.5-7.7); Eosinophil % 0.6 %; Hematocrit 24 % (42-52); Hemoglobin 8.1 g/dL (14.0-18.0); Lymphocyte % 4.4 %; Mean Corpuscular HGB Conc 34 g/dL (31-36); Mean Corpuscular Hemoglobin 33 pg (27-31); Mean Corpuscular Volume 96 fL (80-94); Mean Platelet Volume 7.5 fL (7.4-10.4); Platelet Count 471 10^3/uL (150-450); Red Blood Count 2.45 10^6 /uL (4.18-5.48); Red Cell Distribution Width 17 % (10-15); White Blood Count 16.4 10^3/uL (3.5-10.8)
[2019-01-05] MEDS ORDERED: Nicotine Patch Removal NOTE PATCH OFF SCH (21:00)
--- NOTE | 2019-01-05 21:14 | PN ---
Subjective Date of Service: 01/05/19 Interval History: Patient feels comfortable today. He denies difficulty breathing at rest or with exertion. He denies chest pain, fever/chills, abd pain, n/v. Patient asked that I talk with his niece because she has been directing his care at home, caring for his pleural drain. The frequency of the changes has been too much considering she has been working 12 hour days because of a busy work schedule. Later in the evening around 1900, I was called by nursing staff reporting that there was fluid at the site of the chest wall tube which was saturating the abd pad. I discussed this case with the on-call cardiothoracic surgeon at [facility] who was not concerned at this time. She recommended that he patient follow up in the office tomorrow or the day after. Objective Active Medications: Acetaminophen (Tylenol Tab*) 650 mg PO Q4H PRN PRN Reason: FEVER/PAIN Hydrocodone Bitart/Acetaminophen ([place] 5-325 Tab*) 1 tab PO Q6HR PRN PRN Reason: PAIN - SEVERE Amoxicillin/Clavulanate Potassium (Augmentin Tab*) 875 mg PO BID [facility] Stop: 01/15/19 09:01 Last Admin: 01/05/19 20:08 Dose: 875 mg Aspirin (Aspirin 81 Mg Chew Tab*) 81 mg PO DAILY [facility] Last Admin: 01/05/19 10:06 Dose: 81 mg Ferrous Sulfate (Ferrous Sulfate Tab*) 325 mg PO TID [facility] Last Admin: 01/05/19 20:08 Dose: 325 mg Folic Acid (Folvite Tab*) 1 mg PO DAILY [facility] Last Admin: 01/05/19 10:06 Dose: 1 mg Guaifenesin (Mucinex*) 600 mg PO BID [facility] Last Admin: 01/05/19 20:08 Dose: 600 mg Multivitamins/Minerals (Theragran/Minerals Tab*) 1 tab PO DAILY [facility] Last Admin: 01/05/19 10:06 Dose: 1 tab Nicotine (Nicotine Patch 21 Mg/24 Hr*) 1 patch TRANSDERM DAILY [facility] Last Admin: 01/05/19 11:40 Dose: Not Given Pharmacy Profile Note (Nicotine Patch Removal Note*) 1 note PATCH OFF [address] [facility] Vital Signs - 8 hr 01/05/19 01/05/19 15:15 19:15 Temperature 97.7 F 97.9 F Pulse Rate 81 83 Respiratory 16 22 Rate Blood Pressure 116/60 125/61 (mmHg) O2 Sat by Pulse 99 98 Oximetry Oxygen Devices in Use Now: None Appearance: Thin elderly white male appearing in NAD Eyes: PERRLA Ears/Nose/Mouth/Throat: Mucous Membranes Moist Neck: NL Appearance and Movements; NL JVP Respiratory: Symmetrical Chest Expansion and Respiratory Effort, Clear to Auscultation, - - crepitus to left anterior neck and left axilla Cardiovascular: NL Sounds; No Murmurs; No JVD, RRR Abdominal: - - abd soft, nontender, nondistended Extremities: No Edema, No Clubbing, Cyanosis Skin: No Rash or Ulcers Neurological: Alert and Oriented x 3, NL Muscle Strength and Tone Result Diagrams: 01/05/19 15:18 01/05/19 05:48 Microbiology and Other Data: Microbiology 01/04/19 22:25 Gram Stain - Final Sputum Expectorated Sputum Culture - Preliminary Klebsiella Oxytoca 01/04/19 19:25 Aerobic Blood Culture - Preliminary Blood Venous No Growth Day 1 Anaerobic Blood Culture - Preliminary No Growth Day 1 01/04/19 19:18 Aerobic Blood Culture - Preliminary Blood Venous No Growth Day 1 Anaerobic Blood Culture - Preliminary No Growth Day 1 01/05/19 12:45 Gram Stain - Final Pleural Fluid Assess/Plan/Problems-Billing Assessment: - Patient Problems (1) Subcutaneous emphysema Current Visit: Yes Status: Acute Code(s): T79.7XXA - TRAUMATIC SUBCUTANEOUS EMPHYSEMA, INITIAL ENCOUNTER SNOMED Code(s): 7746329 Comment: -patient has chest tube in place after VATS and decortication during hospitalization at [facility], discharged on 12/31 -only have discharge summary from this visit, requested procedure note and have not yet received -respiratory status is stable and oxygen saturation is wnl (2) History of pleural empyema Current Visit: Yes Status: Acute Code(s): Z87.09 - PERSONAL HISTORY OF OTHER DISEASES OF THE RESPIRATORY SYSTEM SNOMED Code(s): 504708858 Comment: -recent VATS procedure and has left chest tube in place, which is minimlaly leaking at site of chest tube; discussed with cardiothoracic surgery on-call at [facility] who have low concern at this point and would like quick f/u outpatinet -patient and his niece are struggling to care for his chest tube without additional help -patient with leukocytosis which is consistent with recent empyema; pleural effusion is smaller on repeat imaging, leukocytosis is downtrending -no evidence of sepsis -continue augmentin (3) Hypertension Current Visit: Yes Status: Acute Code(s): I10 - ESSENTIAL (PRIMARY) HYPERTENSION SNOMED Code(s): 14338930 Comment: -holding lisinopril and hctz for SBP<110 (4) COPD (chronic obstructive pulmonary disease) Current Visit: Yes Status: Acute Code(s): J44.9 - CHRONIC OBSTRUCTIVE PULMONARY DISEASE, UNSPECIFIED SNOMED Code(s): 35293709 Comment: -no acute exacerbation -patient does not have prescribed inhalers at home (5) Full code status Current Visit: Yes Status: Acute Code(s): Z78.9 - OTHER SPECIFIED HEALTH STATUS SNOMED Code(s): 456622288 (6) DVT prophylaxis Current Visit: No Status: Acute Priority: Low Code(s): Z29.9 - ENCOUNTER FOR PROPHYLACTIC MEASURES, UNSPECIFIED SNOMED Code(s): 903858588 Comment: -SCDs Status and Disposition: will be ready for discharge when appropriate support at home to care for chest tube or [place] placement
[2019-01-06] MEDS: guaiFENesin ER TAB 600 MG PO SCH (08:59)
[2019-01-06] MEDS: Folic Acid TAB* 1 MG PO SCH (08:59)
[2019-01-06] MEDS: Amoxicillin/Clavulanate TAB* 875 MG PO SCH (09:00)
[2019-01-06] MEDS: Ferrous Sulfate TAB* 325 MG PO SCH (09:00)
[2019-01-06] MEDS: Multivitamins/Minerals TAB PO SCH (09:00)
[2019-01-06] MEDS: Aspirin 81 mg CHEW TAB* 81 MG TAB.CHEW PO SCH (09:00)
[2019-01-06] MEDS: Nicotine PATCH 21 MG/24 HR* PATCH TRANSDERM SCH (09:08)
[2019-01-06 11:21] VITALS: BP 121/54
--- NOTE | 2019-01-06 23:41 | DS ---
CC: Dr. Sara Buckley * DISCHARGE SUMMARY: DATE OF ADMISSION: 01/04/19 DATE OF DISCHARGE: 01/06/19 PROVIDER: ILENE Okeefe. ATTENDING PHYSICIAN WHILE IN THE HOSPITAL: Dr. Marie Petty * (dictated by ILENE Okeefe). PRIMARY CARE PROVIDER: Dr. Sara Buckley. CARDIOTHORACIC SURGEON: Dr. Toan Jacobo at [facility]. PRIMARY DIAGNOSES: 1. Pleural fluid leak at the site of left chest tube. 2. Subcutaneous emphysema in the left anterior chest wall, left axilla, and left anterior neck. SECONDARY DIAGNOSES: 1. Recent history of loculated pleural effusion, status post VATS with decortication with left chest tube in place. 2. Hypertension. 3. Arthritis. 4. Bilateral sciatic and groin pain. 5. Chronic obstructive pulmonary disease. 6. History of alcohol abuse. 7. Degenerative disk disease of the spine. STUDIES WHILE IN THE HOSPITAL: Chest CT. Impression: Postsurgical changes demonstrating interval resection of left upper lobe mass. The tip of the left- sided chest tube is abutting the apical pleural space. Small left pneumothorax and small residual left pleural effusion, nodular densities bilaterally; most prominent in the left lower lobe as above. Followup to resolution as some of these likely reflect residual atelectasis, subcutaneous emphysema involving the left chest wall, axillary region, and left lower neck. Sputum culture growing positive for Klebsiella oxytoca, which is resistant to ampicillin only. PERTINENT LABORATORY DATA: White blood cell count initially 18.1 and 16.4 on . HISTORY OF PRESENT ILLNESS AND HOSPITAL COURSE: Matt Ceballos is a 78-year- old with a past medical history significant for COPD and hypertension and recent left chest tube placed after a loculated pleural effusion and VATS decortication at [facility] who presents to the emergency department on 01/04/19 due to weakness and leukocytosis found by his primary care provider. His primary care provider requested that he report to the emergency department due to this leukocytosis. The patient was afebrile without evidence of sepsis at the time of admission, but ultimately, the patient and his niece who has been caring for him note that they have been having a difficult time keeping up with the pleural drain as the patient's niece , who has been caring for him, has to work very long hours at work and has been unable to change the drainage as frequently as it needs to be changed. Ultimately, during the hospital stay, the patient was having leaking at the site of the chest tube and there were some small clots within the Pneumostat. I directly spoke with the provider at the cardiothoracic surgery office at [facility] and they have agreed to see him at appointment in the office today. They believe that he needs to have followup to have the Pneumostat changed. We do not have the equipment at this hospital and we do not have cardiothoracic surgery at this hospital to be able to do this for him. He is safe for travel to this office as well as appropriate for discharge. One of our general surgeons, Dr. Shirley, did see this patient in consultation and ultimately advised the patient to have followup with the cardiothoracic surgeon , which is what will be done as their services are unable to make any recommendations regarding the chest tube. The patient was continued on his Augmentin, which he was taking on an outpatient basis and therefore, there was low concern for Klebsiella sputum culture as it was already being treated. The patient was evaluated by physical therapy who stated that the patient had no acute physical therapy needs. On the day of discharge, there were multiple attempts made to contact the patient's niece, Kosta, and a voice mail was left by our property site manager to relay to her that we were ordering a taxi to send the patient to [facility] to be seen at the appointment.He was given specific instructions on where to go when he gets to [facility]. Ultimately, after discharge outside of the building, his niece reportedly stopped him from getting into the taxi and took him in her own private vehicle. On the day of discharge, the patient was feeling well. He had no difficulty breathing at rest or with exertion. He notes that he has chest discomfort at times, but it is not chest pain and notes that this has been ongoing since the chest tube was placed. He denies fever or chills. He overall feels well. PHYSICAL EXAMINATION: General: Thin elderly white male, lying in hospital bed, appearing comfortable, in no acute distress. Head: Normocephalic, atraumatic. Eyes: PERRL. Sclerae anicteric. ENT: Mucous membranes moist. Neck: No crepitus present. Lungs: Clear to auscultation throughout, minimal crepitus present in the left axilla, no crepitus throughout the chest wall. Cardio: Regular rate and rhythm without murmurs, rubs, or gallops. Abdomen: Abdomen is soft, nontender, nondistended. Extremities: No clubbing, cyanosis, or edema. Neuro: The patient is alert and oriented x3. Answers questions appropriately. No focal deficits. Psych: Pleasant and cooperative. Skin: Skin is warm, dry, and intact. DISCHARGE PLAN: Diet: Regular diet. Activity: The patient is to return to normal activity as tolerated. The patient was given thorough instructions about where to report at [facility], to report to his cardiothoracic surgery appointment. The providers there have been kind enough to accept the last minute appointment for him to have his Pneumostat changed and for his chest tube to be evaluated. His other medications are, otherwise, unchanged and he is to continue his Augmentin. His niece ultimately prevented him from getting into the taxi to take him to [facility] and it is unclear whether he made it to this appointment. However , this was recommended to the patient and the niece on several occasions. The patient is safe to return home, where his niece and family friends will be further assisting with his chest tube care. CONTINUED HOME MEDICATIONS: 1. Augmentin 875 mg p.o. b.i.d. 2. Aspirin 81 mg p.o. daily. 3. Ferrous sulfate 325 mg p.o. t.i.d. 4. Folic acid 1 mg p.o. daily. 5. Lisinopril/hydrochlorothiazide 20 mg/12.5 mg p.o. daily. 6. Nicotine patch 21 mg transdermal. 7. Guaifenesin 600 mg p.o. b.i.d. 8. Hydrocodone 1 tab p.o. q.6 hours p.r.n. for pain. 9. Multivitamin 1 tablet p.o. daily. 10. Vitamin A 10,000 units p.o. daily. 11. Glucosamine 1000 units p.o. daily. CONDITION ON DISCHARGE: Fair. DISPOSITION: To outpatient appointment at [facility] in [place], [place]. Taxi provided; however, not utilized. Then ultimately discharged to home. TIME SPENT: Approximately 50 minutes were spent on this discharge, approximately half this time was spent at the bedside. MAGDA WILLARD, ILENE [id number]/[facility] #: [id number] [facility]
== END 2019-01-06 15:10 | disposition home health service (06) | DRG 200 ==
LOC: ED 17:58 → MED 20:32 → OBSVTOIN 01-05 11:00
PROVIDERS: ADMIT Internal Medicine; ATTEND Internal Medicine
DX: J98.2 Interstitial emphysema (principal); T85.638A Leakage of other specified internal prosthetic devices, implants and grafts, initial encounter; J44.9 Chronic obstructive pulmonary disease, unspecified; I10 Essential (primary) hypertension; M19.90 Unspecified osteoarthritis, unspecified site; F10.21 Alcohol dependence, in remission; F17.210 Nicotine dependence, cigarettes, uncomplicated; D72.829 Elevated white blood cell count, unspecified; M54.32 Sciatica, left side; M54.31 Sciatica, right side; R10.30 Lower abdominal pain, unspecified; M51.37 Other intervertebral disc degeneration, lumbosacral region; Z79.82 Long term (current) use of aspirin; Z79.899 Other long term (current) drug therapy; Z82.49 Family history of ischemic heart disease and other diseases of the circulatory system; Z82.3 Family history of stroke
CPT/HCPCS: 36415; 71046; 71250; 80048; 80053; 81003; 81015; 83605; 85025; 87040; 87070; 87077; 87186; 87205; 93005; 99284; 99406; A9270-GY; G8978-GP-CH; G8979-GP-CH; G8980-GP-CH; G8987-GO-CI; G8988-GO-CH; G8989-GO-CI; J3480

== ENCOUNTER 2023-04-14 02:25 | Inpatient (IN) ==
[2023-04-14] MEDS ORDERED: Lactated Ringers 1000 ml BAG 1,000 ML IV ONE ×2 (04:24)
[2023-04-14] MEDS ORDERED: Vancomycin 1,000 MG in NS 0.9% 250 ml 250 ML IVPB ONE (04:29)
[2023-04-14 04:56] LABS: ABS Lymphocytes 0.5 10^3/uL (1.0-4.8); ABS Monocytes 0.4 10^3/uL (0.0-1.1); ABS Neutrophils 10.9 10^3/uL (1.5-7.6); ABS Nucleated RBC 0.01 10^3/ul; Eosinophil % 0.1 %; Hematocrit 37.2 % (38-53); Hemoglobin 12.3 g/dL (13.2-16.3); Lymphocyte % 4.2 %; Mean Corpuscular Hemoglobin 33.7 pg (27-33); Mean Corpuscular Hgb Conc 32.9 g/dL (31-36); Mean Corpuscular Volume 102.3 fL (80-97); Mean Platelet Volume 9.7 fL (7.5-11.2); Nucleated Red Blood Cells % 0.1 %/100WBC (0.0-0.8); Platelet Count 322 10^3/uL (150-450); Red Blood Count 3.64 10^6/uL (4.06-5.63); White Blood Count 11.8 10^3/uL (3.6-10.2)
[2023-04-14] MEDS ORDERED: Vancomycin per Pharmacy 1 EA NOTE FOLLOW UP SCH ×2 (05:00)
[2023-04-14] MEDS ORDERED: ZOSYN 3.375 GM x ONE DOSE over 30 miuntes IV (05:00)
[2023-04-14] MEDS ORDERED: Zosyn per Pharmacy NOTE FOLLOW UP SCH (05:00)
[2023-04-14 05:47] LABS: Albumin 3.1 g/dL (3.2-5.2); Albumin/Globulin Ratio 1.3 (1-3); Calcium 7.4 mg/dL (8.6-10.3); Creatinine, Serum 6.51 mg/dL (0.67-1.17); Globulin 2.3 g/dL (2-4); Potassium 5.8 mmol/L (3.5-5.0); Total Bilirubin 0.7 mg/dL (0.2-1.0); Total Protein 5.4 g/dL (6.4-8.9)
[2023-04-14] MEDS ORDERED: SODIUM ZIRCONIUM CYCLOSILICATE 10 GM PACKET PO SCH (07:00)
[2023-04-14] MEDS ORDERED: ZOSYN 3.375 GM Q12H per EXTENDED INFUSION IV SCH (09:00)
[2023-04-14] MEDS ORDERED: Sodium Bicarb 8.4% Vial 50 ML 100 MEQ in D5W 1000 ml BAG 900 ML IV ONE (09:47)
[2023-04-14 10:37] LABS: Magnesium 2.5 mg/dL (1.9-2.7); Phosphorus 10.7 mg/dL (2.5-5.0)
[2023-04-14 10:57] LABS: T4, Total 5.04 mcg/dL (6.09-12.23)
[2023-04-14 10:59] LABS: TSH Ultra Thyroid Stim Horm 1.51 mcIU/mL (0.34-5.60)
[2023-04-14 11:10] LABS: Folate > 20.00 ng/mL (5.90-24.80)
[2023-04-14 11:11] LABS: Vitamin B12 1343 pg/mL (180-914)
[2023-04-14] MEDS ORDERED: Hydrocortisone INJ 100 MG/2ML 2 ML VIAL IV ONE (11:59)
[2023-04-14 12:23] LABS: PCO2 Arterial 31 mmHg (35-45); PO2 Arterial 99 mmHg (80-100)
[2023-04-14 13:16] LABS: Urine Appearance Turbid; Urine Bilirubin Negative (Negative); Urine Blood 2+ (Negative); Urine Color Yellow; Urine Glucose Negative (Negative); Urine Ketones Negative (Negative); Urine Nitrite Negative (Negative); Urine Protein 1+(30 mg/dL) (Negative); Urine Specific Gravity 1.011 (1.002-1.030); Urine Urobilinogen Negative (Negative)
[2023-04-14 13:27] LABS: Urine Bacteria Absent (Absent); Urine Red Blood Cell 3+(>10/hpf) (Absent); Urine Sperm Present (Absent); Urine White Blood Cell Trace(0-5/hpf) (Absent)
[2023-04-14] MEDS: Azithromycin 500 mg/250 ml NS 500 MG/250 ML BAG IVPB SCH (14:35)
[2023-04-14 16:57] LABS: Rheumatoid Factor < 10 IU/mL (<15)
[2023-04-14 17:01] LABS: Creatinine, Serum 6.71 mg/dL (0.67-1.17); Potassium 5.2 mmol/L (3.5-5.0); eGFR CKD-EPI 7.7 (>60)
[2023-04-14 17:02] LABS: C Reactive Protein 210.46 mg/L (<8.01)
[2023-04-14 17:28] LABS: Hepatitis B Surface Antigen Nonreactive (Nonreactive)
[2023-04-14 17:45] LABS: Hepatitis B Surface Ab Not Immune (Immune); Hepatitis C Antibody Negative (Negative)
[2023-04-14] MEDS ORDERED: Hydrocortisone INJ 100 MG/2ML 2 ML VIAL IV SCH (20:00)
[2023-04-14] MEDS: SODIUM ZIRCONIUM CYCLOSILICATE 10 GM PACKET PO SCH (20:44)
[2023-04-14] MEDS ORDERED: Sodium Bicarb 8.4% Vial 50 ML 100 MEQ in D5W 1000 ml BAG 1,000 ML IV SCH (21:00)
[2023-04-14 21:36] LABS: HIV 4th Generation Nonreactive (Nonreactive)
[2023-04-14] MEDS ORDERED: Cefepime ADVAN 1 GM in NS 0.9% 50 ML 50 ML IVPB SCH (22:00)
[2023-04-14] MEDS: Cefepime 1 GM in Dextrose 1 GM/50 ML BAG IV SCH (22:22)
[2023-04-15] MEDS ORDERED: Vancomycin Random Level NOTE FOLLOW UP ONE (06:00)
[2023-04-15 07:16] LABS: ABS Lymphocytes 0.3 10^3/uL (1.0-4.8); ABS Monocytes 0.4 10^3/uL (0.0-1.1); ABS Neutrophils 17.3 10^3/uL (1.5-7.6); ABS Nucleated RBC 0.04 10^3/ul; Eosinophil % 0.1 %; Lymphocyte % 1.7 %; Nucleated Red Blood Cells % 0.2 %/100WBC (0.0-0.8)
[2023-04-15 07:17] LABS: Anisocytosis 1+; Polychromasia 1+
[2023-04-15 07:19] LABS: Hematocrit 34.3 % (38-53); Hemoglobin 11.4 g/dL (13.2-16.3); Mean Corpuscular Hemoglobin 33.7 pg (27-33); Mean Corpuscular Hgb Conc 33.2 g/dL (31-36); Mean Corpuscular Volume 101.7 fL (80-97); Mean Platelet Volume 9.8 fL (7.5-11.2); Platelet Count 240 10^3/uL (150-450); Red Blood Count 3.38 10^6/uL (4.06-5.63); Red Cell Distribution Width 12.9 % (12-17); White Blood Count 18.1 10^3/uL (3.6-10.2)
[2023-04-15 07:54] LABS: Calcium 6.7 mg/dL (8.6-10.3); Creatinine, Serum 6.63 mg/dL (0.67-1.17); Magnesium 2.4 mg/dL (1.9-2.7); Phosphorus 9.1 mg/dL (2.5-5.0); Potassium 5.1 mmol/L (3.5-5.0); eGFR CKD-EPI 7.9 (>60)
[2023-04-15] MEDS: SODIUM ZIRCONIUM CYCLOSILICATE 10 GM PACKET PO SCH ×2 (08:48→09:04)
[2023-04-15] MEDS ORDERED: NS 0.9% 1000 ml BAG 200 ML IV PRN (14:41)
[2023-04-15] MEDS ORDERED: Albumin Human 25% 25 GM/100 ML BTL IV PRN (14:41)
[2023-04-15] MEDS ORDERED: NS 0.9% 1000 ml BAG 100 ML IV PRN (14:41)
[2023-04-15] MEDS: Heparin 1,000 UNIT/ML 10 ml (10,000 UNITS) CATHLAB/DIALYSIS DIALYSIS PRN ×3 (15:15→17:40)
[2023-04-15] MEDS ORDERED: NS 0.45% 1000 ml BAG 1,000 ML IV SCH (16:00)
[2023-04-15] MEDS: Azithromycin 500 mg/250 ml NS 500 MG/250 ML BAG IVPB SCH (18:27)
[2023-04-15] MEDS: Cefepime 1 GM in Dextrose 1 GM/50 ML BAG IV SCH (20:02)
[2023-04-15 23:35] LABS: Hepatitis B Surface Antigen Nonreactive (Nonreactive)
[2023-04-16 08:04] LABS: ABS Lymphocytes 0.6 10^3/uL (1.0-4.8); ABS Monocytes 0.3 10^3/uL (0.0-1.1); ABS Neutrophils 18.9 10^3/uL (1.5-7.6); ABS Nucleated RBC 0.01 10^3/ul; Hematocrit 33.1 % (38-53); Hemoglobin 11.1 g/dL (13.2-16.3); Lymphocyte % 3.1 %; Mean Corpuscular Hemoglobin 33.8 pg (27-33); Mean Corpuscular Hgb Conc 33.7 g/dL (31-36); Mean Corpuscular Volume 100.4 fL (80-97); Nucleated Red Blood Cells % 0.1 %/100WBC (0.0-0.8); Platelet Count 212 10^3/uL (150-450); Red Cell Distribution Width 12.9 % (12-17); White Blood Count 19.9 10^3/uL (3.6-10.2)
[2023-04-16 09:12] LABS: Calcium 7.1 mg/dL (8.6-10.3); Creatinine, Serum 3.98 mg/dL (0.67-1.17); Magnesium 1.9 mg/dL (1.9-2.7); Phosphorus 4.5 mg/dL (2.5-5.0); Potassium 3.7 mmol/L (3.5-5.0); eGFR CKD-EPI 14.5 (>60)
[2023-04-16] MEDS: Heparin 1,000 UNIT/ML 10 ml (10,000 UNITS) CATHLAB/DIALYSIS DIALYSIS PRN ×3 (14:00→16:45)
[2023-04-16 14:18] LABS: Kappa Free Light Chain 8.41 mg/dL; Lambda Free Light Chain, S 4.87 mg/dL
[2023-04-16] MEDS: NS 0.45% 1000 ml BAG 1,000 ML IV SCH (14:20)
[2023-04-16] MEDS: Azithromycin 500 mg/250 ml NS 500 MG/250 ML BAG IVPB SCH (14:44)
[2023-04-16 14:48] LABS: Complement C3 63 mg/dL (75 - 175)
[2023-04-16] MEDS: Cefepime 1 GM in Dextrose 1 GM/50 ML BAG IV SCH (22:05)
[2023-04-17] MEDS: NS 0.45% 1000 ml BAG 1,000 ML IV SCH ×2 (04:31→18:02)
[2023-04-17] MEDS: Heparin 1,000 UNIT/ML 10 ml (10,000 UNITS) CATHLAB/DIALYSIS DIALYSIS PRN ×2 (08:20→11:34)
[2023-04-17 08:24] LABS: Hematocrit 34.3 % (38-53); Hemoglobin 11.5 g/dL (13.2-16.3); Mean Corpuscular Hemoglobin 33.5 pg (27-33); Mean Corpuscular Hgb Conc 33.4 g/dL (31-36); Mean Corpuscular Volume 100.1 fL (80-97); Mean Platelet Volume 9.9 fL (7.5-11.2); Platelet Count 181 10^3/uL (150-450); Red Blood Count 3.42 10^6/uL (4.06-5.63); White Blood Count 18.2 10^3/uL (3.6-10.2)
[2023-04-17 09:24] LABS: Calcium 7.4 mg/dL (8.6-10.3); Creatinine, Serum 2.05 mg/dL (0.67-1.17); Potassium 3.5 mmol/L (3.5-5.0); eGFR CKD-EPI 32.2 (>60)
[2023-04-17] MEDS ORDERED: Dextrose 50% Syringe 50 ml 25 GM/50 ML SYRINGE IV PUSH ONE (10:00)
[2023-04-17 12:00] LABS: C-ANCA Negative (Negative); P-ANCA Negative (Negative)
[2023-04-17] MEDS: Cefepime 1 GM in Dextrose 1 GM/50 ML BAG IV SCH (22:06)
[2023-04-18 05:27] LABS: Hematocrit 28.3 % (38-53); Hemoglobin 9.8 g/dL (13.2-16.3); Mean Corpuscular Hemoglobin 34.1 pg (27-33); Mean Corpuscular Hgb Conc 34.5 g/dL (31-36); Mean Corpuscular Volume 98.7 fL (80-97); Mean Platelet Volume 9.9 fL (7.5-11.2); Platelet Count 148 10^3/uL (150-450); Red Blood Count 2.87 10^6/uL (4.06-5.63); White Blood Count 14.7 10^3/uL (3.6-10.2)
[2023-04-18 05:41] LABS: Calcium 7.7 mg/dL (8.6-10.3); Creatinine, Serum 1.32 mg/dL (0.67-1.17); Phosphorus 2.9 mg/dL (2.5-5.0); Potassium 3.2 mmol/L (3.5-5.0); eGFR CKD-EPI 54.5 (>60)
[2023-04-18] MEDS ORDERED: Potassium Chloride LIQUID 20 MEQ/15 ML LIQUID PO ONE (07:12)
[2023-04-18] MEDS: NS 0.45% 1000 ml BAG 1,000 ML IV SCH (07:48)
[2023-04-18 08:53] LABS: ABS Lymphocytes 0.4 10^3/uL (1.0-4.8); ABS Monocytes 0.3 10^3/uL (0.0-1.1); ABS Neutrophils 13.9 10^3/uL (1.5-7.6); ABS Nucleated RBC 0.01 10^3/ul; Eosinophil % 0.1 %; Nucleated Red Blood Cells % 0.1 %/100WBC (0.0-0.8)
[2023-04-18] MEDS ORDERED: Albuterol/Ipratropium NEB.SOL (2.5/0.5 MG) 3 ML NEB.SOLN INH PRN (09:43)
[2023-04-18] MEDS ORDERED: Albuterol/Ipratropium NEB.SOL (2.5/0.5 MG) 3 ML NEB.SOLN ONE (09:54)
[2023-04-18] MEDS: SPIRIVA Respimat (tiotropium) 2.5 mcg/inh Inhaler INH SCH (10:01)
[2023-04-18] MEDS ORDERED: D5LR 1000 ml BAG 1,000 ML IV SCH (11:00)
[2023-04-18 14:39] LABS: Albumin 2.3 g/dL (3.4-4.7); Flag, M-protein Isotype Negative (Negative); Total Protein 4.6 g/dL (6.3 - 7.9)
[2023-04-18] MEDS: Cefepime 1 GM in Dextrose 1 GM/50 ML BAG IV SCH (21:25)
[2023-04-19 05:56] LABS: Hematocrit 31.6 % (38-53); Hemoglobin 10.9 g/dL (13.2-16.3); Mean Corpuscular Hgb Conc 34.4 g/dL (31-36); Mean Corpuscular Volume 98.8 fL (80-97); Mean Platelet Volume 9.9 fL (7.5-11.2); Platelet Count 145 10^3/uL (150-450); Red Cell Distribution Width 12.9 % (12-17); White Blood Count 14.5 10^3/uL (3.6-10.2)
[2023-04-19 06:02] LABS: Calcium 7.9 mg/dL (8.6-10.3); Creatinine, Serum 1.45 mg/dL (0.67-1.17); Magnesium 1.4 mg/dL (1.9-2.7); Phosphorus 3.3 mg/dL (2.5-5.0); Potassium 3.5 mmol/L (3.5-5.0); eGFR CKD-EPI 48.7 (>60)
[2023-04-19 06:17] LABS: ABS Lymphocytes 0.2 10^3/uL (1.0-4.8); ABS Monocytes 0.4 10^3/uL (0.0-1.1); ABS Neutrophils 13.9 10^3/uL (1.5-7.6); Lymphocyte % 1.5 %
[2023-04-19] MEDS ORDERED: Magnesium Sulf 4 GM/100 ML IV 4,000 MG/100 ML BAG IVPB ONE (07:46)
[2023-04-19] MEDS: SPIRIVA Respimat (tiotropium) 2.5 mcg/inh Inhaler INH SCH (10:45)
[2023-04-20 06:43] LABS: ABS Lymphocytes 0.3 10^3/uL (1.0-4.8); ABS Monocytes 0.4 10^3/uL (0.0-1.1); ABS Neutrophils 15.6 10^3/uL (1.5-7.6); ABS Nucleated RBC 0.01 10^3/ul; Eosinophil % 0.1 %; Hematocrit 37.2 % (38-53); Hemoglobin 12.5 g/dL (13.2-16.3); Lymphocyte % 1.6 %; Mean Corpuscular Hemoglobin 33.4 pg (27-33); Mean Corpuscular Hgb Conc 33.6 g/dL (31-36); Mean Corpuscular Volume 99.2 fL (80-97); Mean Platelet Volume 10.2 fL (7.5-11.2); Platelet Count 168 10^3/uL (150-450); Red Blood Count 3.75 10^6/uL (4.06-5.63); Red Cell Distribution Width 13.3 % (12-17); White Blood Count 16.3 10^3/uL (3.6-10.2)
[2023-04-20 07:06] LABS: Calcium 8.5 mg/dL (8.6-10.3); Creatinine, Serum 1.39 mg/dL (0.67-1.17); Magnesium 2.4 mg/dL (1.9-2.7); Potassium 3.4 mmol/L (3.5-5.0); eGFR CKD-EPI 51.2 (>60)
[2023-04-20] MEDS ORDERED: D5LR 1000 ml BAG 1,000 ML IV SCH (07:34)
[2023-04-20] MEDS ORDERED: Dextrose 50% Syringe 50 ml 25 GM/50 ML SYRINGE IV PUSH PRN (07:38)
[2023-04-20] MEDS: SPIRIVA Respimat (tiotropium) 2.5 mcg/inh Inhaler INH SCH (07:50)
[2023-04-20] MEDS ORDERED: Acetylcysteine INHALATION SOL 200 MG/ML NEB.SOLN 10 ML INH PRN (08:25)
[2023-04-20] MEDS ORDERED: KCL 20 MEQ/100 ML IVPREMIX 20 MEQ/100 ML BAG IV SCH (09:00)
[2023-04-20 09:06] LABS: PCO2 Arterial 67 mmHg (35-45); PO2 Arterial 61 mmHg (80-100)
[2023-04-20] MEDS ORDERED: Ondansetron 4 mg VIAL 2 MG/ML 2 ml VIAL IV PRN (11:12)
[2023-04-20] MEDS ORDERED: LORazepam 2 mg VIAL 1 ml IV PUSH PRN (11:12)
[2023-04-20] MEDS ORDERED: Atropine 1% (ORAL/SL) 15 ML BTL SL PRN (11:12)
[2023-04-20] MEDS ORDERED: Lorazepam PYXIS KEY PRN (11:19)
[2023-04-20 15:19] VITALS: BP 131/85
[2023-04-20] MEDS: Morphine 2 MG/ML SYRINGE IV PRN ×2 (17:41→21:19)
[2023-04-21] MEDS: Morphine 2 MG/ML SYRINGE IV PRN ×2 (05:20→09:48)
== END 2023-04-21 16:20 | disposition expired | DRG 871 ==
LOC: ED 02:25 → SUATTDRO 04:23 → EDHOLD 04:23 → MED 15:04 → ICU 04-20 08:55 → MED 04-20 14:10
PROVIDERS: ADMIT Internal Medicine; ATTEND Family Medicine